=== PATIENT | male | born 1945 | race Caucasian/White ===

== ENCOUNTER → 2017-05-18 | Outpatient (CLI) | payer MEDICARE, BC ==
--- NOTE | 2017-05-18 10:18 | US ---
EXAMINATION TYPE: US kidneys/renal and bladder DATE OF EXAM: 05/18/2017 COMPARISON: NONE CLINICAL HISTORY: R31.0 Gross Hematuria; TURP; gross hematuria noted two weeks ago and urologist not ed then possible blood vessel rupture at prostate level EXAM MEASUREMENTS: Right Kidney: 12.3 x 5.5 x 5.8 cm Left Kidney: 11.7 x 7.7 x 5.3 cm Post Void Residual Volume: 2.0 mL Right Kidney: inferior simple cortical cyst = 1.3 x 1.4 x 1.3cm Left Kidney: 2 inferior simple cortical cysts are noted with larger cyst = 1.8 x 1.9 x 1.8cm. Bladder: wnl; enlarged prostate is noted posteriorly Bilateral Jets seen: Yes Normal Post Void Residual: Yes Inferior impression due to enlarged prostate is noted at the level of the bladder. Kidneys show garfield l cortical medullary differentiation, no hydronephrosis or pathologic calcification. IMPRESSION: Enlarged prostate gland. No significant post void residual volume. Simple cysts lower pole right kidn ey
== END | disposition home or self-care (01) ==
LOC: RADUSWWP 07:59
PROVIDERS: ATTEND Urology
DX: N28.1 Cyst of kidney, acquired (principal); N40.0 Benign prostatic hyperplasia without lower urinary tract symptoms
CPT/HCPCS: 76770

== ENCOUNTER → 2018-04-20 | Outpatient (CLI) | payer MEDICARE, BC | END | disposition home or self-care (01) | LOC: LABWHC1 07:12 | PROVIDERS: ATTEND Internal Medicine | DX: R73.03 Prediabetes (principal) | CPT/HCPCS: 36415; 82947; 82950 ==

== ENCOUNTER 2018-05-19 10:30 | Inpatient (IN) | payer MEDICARE, BC ==
--- NOTE | 2018-05-19 10:43 | ED ---
Arrhythmia/Palpitations HPI - General Chief Complaint: Arrhythmia/Palpitations Stated Complaint: tachycardia Time Seen by Provider: 05/19/18 10:35 Source: patient Mode of arrival: ambulatory Limitations: no limitations - History of Present Illness Initial Comments: is a 72-year-old male presenting for palpitations. The patient states that he has a known history of atrial fibrillation for the last 2 days, he has been having constant palpitations. He denies any chest pain or shortness of breath. He denies any fevers or chills or coughing. He states that he is been compliant with his carvedilol, contrast oh, Lasix and he does have a pacemaker which is not fired. He also denies any nausea/vomiting/diarrhea. - Related Data Home Medications Medication Instructions Recorded Confirmed Atorvastatin [Lipitor] 10 mg PO DAILY 05/15/18 05/19/18 Carvedilol 25 mg PO BID 05/15/18 05/19/18 Aspirin 325 mg PO DAILY PRN 05/19/18 05/19/18 Cholecalciferol [Vitamin D3] 1,000 unit PO DAILY 05/19/18 05/19/18 Dofetilide [Tikosyn] 500 mcg PO BID 05/19/18 05/19/18 Furosemide [Lasix] 20 mg PO DAILY 05/19/18 05/19/18 Sacubitril/Valsartan [Entresto 49 1 tab PO BID 05/19/18 05/19/18 mg-51 mg Tablet] Tumeric (Unknown) 1 tab PO DAILY 05/19/18 05/19/18 hydrALAZINE HCL [Apresoline] 25 mg PO BID 05/19/18 05/19/18 Allergies Allergy/AdvReac Type Severity Reaction Status Date / Time No Known Allergies Allergy Verified 05/19/18 11:16 Review of Systems ROS Statement: Those systems with pertinent positive or pertinent negative responses have been documented in the HPI. Constitutional: Negative for chills, fatigue and fever. HENT: Negative for congestion. Respiratory: Negative for chest tightness, shortness of breath and wheezing. Negative for cough Cardiovascular: Negative for chest pain and positive for palpitations. Gastrointestinal: Negative for abdominal pain. Negative for abdominal distention, diarrhea, nausea and vomiting. Genitourinary: Negative for dysuria. Musculoskeletal: Negative for back pain, neck pain and neck stiffness. Skin: Negative for color change. Neurological: Negative for dizziness, speech difficulty, weakness and light- headedness. Psychiatric/Behavioral: Negative for agitation and confusion. Negative for anxiety ROS Other: All systems not noted in ROS Statement are negative. Past Medical History Past Medical History: Atrial Fibrillation, Diabetes Mellitus, Hyperlipidemia, Hypertension, Sleep Apnea/CPAP/BIPAP Additional Past Medical History / Comment(s): cardiomyopathy History of Any Multi-Drug Resistant Organisms: None Reported Past Surgical History: Ablation, Orthopedic Surgery, Pacemaker Additional Past Surgical History / Comment(s): cataracts Past Anesthesia/Blood Transfusion Reactions: No Reported Reaction Type of Cardiac Device: Unknown Device Placement Date:: unknown Past Psychological History: No Psychological Hx Reported Smoking Status: Former smoker Past Alcohol Use History: Rare Past Drug Use History: None Reported General Exam - General Exam Comments Initial Comments: Constitutional: Pt appears well-developed and well-nourished. No distress. Head: Normocephalic and atraumatic. Eyes: EOM are normal. Neck: Normal range of motion. Neck supple. Cardiovascular: Tachycardia, regular rhythm, S1 normal, S2 normal and normal heart sounds. Exam reveals no gallop and no friction rub. No murmur heard. Pulmonary/Chest: Effort normal and breath sounds normal. No tachypnea and no bradypnea. No respiratory distress. No wheezes or rales noted. Abdominal: Soft. Bowel sounds are normal. Pt exhibits no shifting dullness, no distension, no pulsatile liver, no fluid wave, no abdominal bruit and no ascites. There is no rigidity, no rebound, no guarding, no tenderness at McBurney's point and negative Samayoa's sign. There is no tenderness. Musculoskeletal: Normal range of motion. Neurological: Pt is alert and oriented to person, place, and time. No cranial nerve deficit. Skin: Skin is warm and dry. No rash noted. Pt is not diaphoretic. No erythema. No pallor. Psychiatric: Pt has a normal mood and affect. Pt behavior is normal. Thought content normal. Limitations: no limitations Course Vital Signs 05/19/18 05/19/18 05/19/18 10:31 10:44 10:48 Temperature 98.0 F Pulse Rate 126 H 126 H Pulse Rate [ 125 H Configuration Engineer ] Respiratory 18 16 Rate Blood Pressure 124/74 O2 Sat by Pulse 99 96 Oximetry 05/19/18 05/19/18 05/19/18 11:00 11:15 11:30 Temperature Pulse Rate 125 H 123 H 124 H Pulse Rate [ Configuration Engineer ] Respiratory 19 18 10 L Rate Blood Pressure 133/104 122/95 122/95 O2 Sat by Pulse 95 98 96 Oximetry 05/19/18 05/19/18 05/19/18 11:43 12:00 12:30 Temperature Pulse Rate 123 H 122 H 122 H Pulse Rate [ Configuration Engineer ] Respiratory 18 19 20 Rate Blood Pressure 120/92 126/95 O2 Sat by Pulse 95 96 Oximetry 05/19/18 13:00 Temperature Pulse Rate 123 H Pulse Rate [ Configuration Engineer ] Respiratory 16 Rate Blood Pressure 117/82 O2 Sat by Pulse 95 Oximetry - Reevaluation(s) Reevaluation #1: 05/19/18 12:55 - discussed case with cardiology as laboratory studies are unremarkable. Patient was given 2 doses of 5 mg metoprolol with no significant change in rhythm. He was then started on Cardizem drip with again no change in rhythm. The [employer] pacemaker was also formally interrogated and no evidence of significant arrhythmia other than it being paced. Case is discussed with cardiology and it was recommended that this may be pacemaker induced tachycardia and it was also recommended that EKG be performed with magnet placed on pacer. EKG Findings - EKG Comments: EKG Findings:: Sinus tachycardia with rate of 126 bpm and right bundle-branch block. QRS duration 148, QTC 590. 13:58 - EKG shows sinus tachycardia of a rate of 123 bpm, QRS 146, QTC 604. Medical Decision Making - Medical Decision Making Multiple discussions were had with the letterpress setter and discussion was also had with the [employer] pacemaker jewelry sales representative and it was advised that there was no atrial arrhythmia that would be causing the patient's tachycardia. Because of this, it is apparent that this is sinus tachycardia. Patient was not heparinized as he has a watchman. Etiology of the symptoms are unclear and because of this, patient will be placed in observation as he has an ACO patient. Further management of Cardizem will be deferred to cardiology as well. At the time of disposition, patient is hemodynamically stable in no acute distress.Explained all labs and diagnostic test results and that we will admit patient to hospital. Pt is agreeable to plan and case has been discussed with Dr. Holt and they agree to accept the pt. - Lab Data Result diagrams: 05/19/18 10:45 05/19/18 10:45 Lab Results 05/19/18 05/19/18 05/19/18 Range/Units 10:45 10:45 10:45 WBC 7.0 (3.8-10.6) k/uL RBC 4.67 (4.30-5.90) m/uL Hgb 14.9 (13.0-17.5) gm/dL Hct 44.8 (39.0-53.0) % MCV 96.0 (80.0-100.0) fL MCH 32.0 (25.0-35.0) pg MCHC 33.3 (31.0-37.0) g/dL RDW 13.1 (11.5-15.5) % Plt Count 198 (150-450) k/uL Neutrophils % 68 % Lymphocytes % 17 % Monocytes % 7 % Eosinophils % 4 % Basophils % 1 % Neutrophils # 4.7 (1.3-7.7) k/uL Lymphocytes # 1.2 (1.0-4.8) k/uL Monocytes # 0.5 (0-1.0) k/uL Eosinophils # 0.3 (0-0.7) k/uL Basophils # 0.1 (0-0.2) k/uL PT 10.0 (9.0-12.0) sec INR 0.9 (<1.2) APTT 24.9 (22.0-30.0) sec Sodium 140 (137-145) mmol/L Potassium 4.5 (3.5-5.1) mmol/L Chloride 104 (98-107) mmol/L Carbon Dioxide 28 (22-30) mmol/L Anion Gap 8 mmol/L BUN 32 H (9-20) mg/dL Creatinine 1.12 (0.66-1.25) mg/dL Est GFR (CKD-EPI)AfAm 76 (>60 ml/min/1.73 sqM) Est GFR (CKD-EPI)NonAf 66 (>60 ml/min/1.73 sqM) Glucose 102 H (74-99) mg/dL Calcium 9.4 (8.4-10.2) mg/dL Magnesium 2.1 (1.6-2.3) mg/dL Total Bilirubin 1.3 (0.2-1.3) mg/dL AST 23 (17-59) U/L ALT 35 (21-72) U/L Alkaline Phosphatase 76 (38-126) U/L Troponin I (0.000-0.034) ng/mL NT-Pro-B Natriuret Pep pg/mL Total Protein 7.0 (6.3-8.2) g/dL Albumin 4.1 (3.5-5.0) g/dL TSH 1.690 (0.465-4.680) mIU/L 05/19/18 05/19/18 Range/Units 10:45 10:45 WBC (3.8-10.6) k/uL RBC (4.30-5.90) m/uL Hgb (13.0-17.5) gm/dL Hct (39.0-53.0) % MCV (80.0-100.0) fL MCH (25.0-35.0) pg MCHC (31.0-37.0) g/dL RDW (11.5-15.5) % Plt Count (150-450) k/uL Neutrophils % % Lymphocytes % % Monocytes % % Eosinophils % % Basophils % % Neutrophils # (1.3-7.7) k/uL Lymphocytes # (1.0-4.8) k/uL Monocytes # (0-1.0) k/uL Eosinophils # (0-0.7) k/uL Basophils # (0-0.2) k/uL PT (9.0-12.0) sec INR (<1.2) APTT (22.0-30.0) sec Sodium (137-145) mmol/L Potassium (3.5-5.1) mmol/L Chloride (98-107) mmol/L Carbon Dioxide (22-30) mmol/L Anion Gap mmol/L BUN (9-20) mg/dL Creatinine (0.66-1.25) mg/dL Est GFR (CKD-EPI)AfAm (>60 ml/min/1.73 sqM) Est GFR (CKD-EPI)NonAf (>60 ml/min/1.73 sqM) Glucose (74-99) mg/dL Calcium (8.4-10.2) mg/dL Magnesium (1.6-2.3) mg/dL Total Bilirubin (0.2-1.3) mg/dL AST (17-59) U/L ALT (21-72) U/L Alkaline Phosphatase (38-126) U/L Troponin I <0.012 (0.000-0.034) ng/mL NT-Pro-B Natriuret Pep 350 pg/mL Total Protein (6.3-8.2) g/dL Albumin (3.5-5.0) g/dL TSH (0.465-4.680) mIU/L Disposition Clinical Impression: Palpitations, Sinus tachycardia Disposition: ADMITTED IP TO THIS HOSP Condition: Fair Referrals: Maximilian Roberto MD [Primary Care Provider] - 1-2 days Decision to Admit Reason: Admit from EC Decision Date: 05/19/18 Decision Time: 15:32
--- NOTE | 2018-05-19 11:07 | XR ---
EXAMINATION TYPE: XR chest 2V DATE OF EXAM: 05/19/2018 COMPARISON: NONE HISTORY: Dysrhythmia TECHNIQUE: Frontal and lateral views of the chest are obtained. FINDINGS: Strand-like perihilar atelectasis is seen in addition to a multilead left-sided cardiac de vice and mild cardiomegaly. Otherwise the lungs are well aerated and osseous structures are grossly i ntact with mild osteopenia. IMPRESSION: Minimal perihilar subsegmental atelectasis and cardiomegaly. Otherwise unremarkable exam .
[2018-05-19 11:18] LABS: Basophils # (A) 0.1 k/uL (0-0.2); Basophils % (A) 1 %; Eosinophils # (A) 0.3 k/uL (0-0.7); Eosinophils % (A) 4 %; HCT 44.8 % (39.0-53.0); HGB 14.9 gm/dL (13.0-17.5); Lymphocytes # (A) 1.2 k/uL (1.0-4.8); Lymphocytes % (A) 17 %; MCHC 33.3 g/dL (31.0-37.0); Mean Platelet Volume 6.3; Monocytes # (A) 0.5 k/uL (0-1.0); Monocytes % (A) 7 %; Neutrophils # (A) 4.7 k/uL (1.3-7.7); Neutrophils % (A) 68 %; Platelet Count 198 k/uL (150-450); RBC 4.67 m/uL (4.30-5.90); RDW 13.1 % (11.5-15.5)
[2018-05-19 11:20] LABS: Albumin 4.1 g/dL (3.5-5.0); Calcium 9.4 mg/dL (8.4-10.2); Magnesium 2.1 mg/dL (1.6-2.3); Potassium 4.5 mmol/L (3.5-5.1); Total Bilirubin 1.3 mg/dL (0.2-1.3)
[2018-05-19] MEDS: METOPROLOL TARTRATE 5 MG/5 ML VIAL IVP SCH ×3 (11:20→11:43)
[2018-05-19 11:36] LABS: INR 0.9 (<1.2); Partial Thromboplastin Time 24.9 sec (22.0-30.0)
[2018-05-19] MEDS ORDERED: DILTIAZEM DRIP BOLUS FROM BAG 1 MG SOLN IV ONE (11:41)
[2018-05-19] MEDS ORDERED: HEPARIN SODIUM,PORCINE 10,000 UNIT/ML 1 ML VIAL IV STA (11:41)
[2018-05-19] MEDS ORDERED: ASPIRIN 81 MG PO STA (11:41)
[2018-05-19] MEDS ORDERED: MAGNESIUM SULFATE-D5W PMX 1 GM in DEXTROSE/WATER 1 100ML.BAG IVPB STA (11:41)
[2018-05-19] MEDS ORDERED: DILTIAZEM 125 MG in SODIUM CHLORIDE 0.9% 100 ML IV SCH (11:45)
[2018-05-19] MEDS ORDERED: HEPARIN SOD,PORK IN 0.45% NACL 25,000 UNIT in 0.45% NACL 1 250ML.BAG IV SCH (11:45)
[2018-05-19] MEDS ORDERED: HEPARIN SODIUM,PORCINE 5,000 UNIT/ML 1 ML VIAL IV ONE (11:54)
[2018-05-19] MEDS ORDERED: NITROGLYCERIN SL TABS 0.4 MG TAB SUBLINGUAL PRN (15:16)
[2018-05-19 18:34] VITALS: RESP 18; BMI 36.9
[2018-05-19] MEDS: hydrALAZINE HCL 25 MG TAB PO SCH (20:25)
[2018-05-19] MEDS: SACUBITRIL/VALSARTAN 49 MG-51 MG TABLET PO SCH (20:25)
[2018-05-19] MEDS: CARVEDILOL 12.5 MG TAB PO SCH (20:25)
[2018-05-19] MEDS: DOFETILIDE 500 MCG CAP PO SCH (20:25)
[2018-05-19] MEDS ORDERED: NALOXONE 0.4 MG/ML 1 ML VIAL IV PRN (21:51)
[2018-05-19] MEDS ORDERED: MAGNESIUM HYDROXIDE 2,400 MG/10 ML CUP PO PRN (21:51)
[2018-05-19] MEDS ORDERED: ACETAMINOPHEN TAB 325 MG TAB PO PRN (21:51)
[2018-05-19] MEDS ORDERED: ONDANSETRON 4 MG/2 ML VIAL IVP PRN (21:51)
[2018-05-19] MEDS ORDERED: ALPRAZolam 0.25 MG TAB PO PRN (21:51)
[2018-05-19] MEDS ORDERED: LACTULOSE 20 GM/30 ML CUP PO PRN (21:51)
[2018-05-19] MEDS ORDERED: CALCIUM CARBONATE 500 MG CHEWABLE PO PRN (21:51)
[2018-05-19] MEDS ORDERED: MELATONIN 3 MG TABLET PO PRN (21:51)
--- NOTE | 2018-05-19 22:53 | HP ---
HISTORY AND PHYSICAL DATE OF SERVICE: 05/19/2018. PRESENTING COMPLAINT: Heart racing. HISTORY OF PRESENTING COMPLAINT: A very pleasant 72-year-old patient of Dr. Maximilian Roberto. Chronic stable medical conditions include diabetes, hypertension, hyperlipidemia, obstructive sleep apnea, cardiomyopathy, last EF around 35%, and a permanent pacemaker for complete heart block. The patient for 2 to 3 days has been noticing palpitations, some dizziness, lightheadedness. Came to the ER, found to be in atrial fibrillation with rapid ventricular rate. Put on a Cardizem drip. Patient's heart rate then settled down to the 70s. The patient is admitted for the same. Cardiology was consulted. There was no chest pain or pressure. REVIEW OF SYSTEMS: CONSTITUTIONAL: Tired. HEENT: None. RESPIRATORY: As above. CARDIOVASCULAR: As above. GASTROINTESTINAL: None. GENITOURINARY: None. MUSCULOSKELETAL: None. DERMATOLOGIC: None. HEMATOLOGIC: None. LYMPHATIC: None. PSYCHIATRY: None. NEUROLOGICAL: None. PAST MEDICAL HISTORY: Atrial fibrillation, diabetes, hypertension, hyperlipidemia, obstructive sleep apnea, cardiomyopathy EF 25%, complete heart block with a pacemaker. PAST SURGICAL HISTORY: Ablation, pacemaker, cataract. SOCIAL HISTORY: Retired from [employer]. The patient smoked for about 15 years a long time ago. Alcohol sometimes. FAMILY HISTORY: Reviewed, noncontributory to presentation. HOME MEDICATIONS: Turmeric 1 tablet daily, 49/50 one tab p.o. b.i.d., Lasix 20 mg daily, vitamin D3, 1000 units p.o. daily, aspirin 325 p.o. daily p.r.n., hydralazine 25 mg b.i.d., 500 mg b.i.d., Coreg 25 mg b.i.d., Lipitor 10 mg p.o. daily. ALLERGIES: None. PHYSICAL EXAMINATION: VITAL SIGNS: Vital signs on presentation, temperature 98, pulse 126, respirations 18, blood pressure 120/74, pulse ox 99 percent room air. GENERAL APPEARANCE: Well built, BMI 37. Sitting at the edge of bed, awake. EYES: Pupils equal. Conjunctivae normal. HEENT: External appearance of nose and ears normal. Oral cavity normal. NECK: JVD not raised. Mass not palpable. Respiratory effort normal. LUNGS: Fair entry. CARDIOVASCULAR: Heart is irregular. No edema. ABDOMEN: Soft, nontender. Liver and spleen not palpable. LYMPHATIC: No lymph node palpable in the neck or axillae. PSYCHIATRY: Alert and oriented x3. Mood and affect normal. NEUROLOGIC: Pupils equal. Cranial nerves grossly intact. Power and sensation grossly intact. INVESTIGATIONS: White count 7, hemoglobin 14.9, and platelets 198. Potassium 4.5, BUN 32, creatinine 1.12. Troponin times two negative. TSH 1.6. EKG tracing showing a rate of 126 with right bundle branch block pattern, personally reviewed by me. Chest x-ray film personally reviewed by me shows borderline cardiomegaly, pacemaker, no obvious venous prominence. ASSESSMENT: 1. Persistent atrial fibrillation with rapid ventricular rate on presentation, was started on a Cardizem drip in the ER. His heart rate did come down to 70s. 2. Obesity; BMI 37. 3. Hyperlipidemia. 4. Essential hypertension. 5. Obstructive sleep apnea. 6. Cardiomyopathy, ejection fraction of 35%. 7. Complete heart block with permanent pacemaker. PLAN: Home medications are resumed. The patient has been on a Cardizem drip which currently is being held. Await input from Cardiology. Care was discussed with the patient. Questions were answered. Anticoagulation as per Cardiology. MMODL / IJN: [id number] /
[2018-05-20 04:05] LABS: Cholesterol 121 mg/dL (<200); HDL Cholesterol 35 mg/dL (40-60); LDL Cholesterol,Calculated 60 mg/dL (0-99); Triglycerides 132 mg/dL (<150)
[2018-05-20 06:24] VITALS: PULSE 74
[2018-05-20] MEDS: CARVEDILOL 12.5 MG TAB PO SCH (08:03)
[2018-05-20] MEDS: hydrALAZINE HCL 25 MG TAB PO SCH (08:04)
[2018-05-20] MEDS: SACUBITRIL/VALSARTAN 49 MG-51 MG TABLET PO SCH (08:04)
[2018-05-20] MEDS: DOFETILIDE 500 MCG CAP PO SCH (08:04)
[2018-05-20] MEDS ORDERED: Acetaminophen-Codeine 300-30mg TAB PO PRN (08:33)
[2018-05-20] MEDS ORDERED: FUROSEMIDE 20 MG TAB PO SCH (09:00)
[2018-05-20] MEDS ORDERED: ASPIRIN 325 MG TAB PO SCH (09:00)
[2018-05-20] MEDS ORDERED: ATORVASTATIN 10 MG TAB PO SCH (09:00)
[2018-05-20 12:46] VITALS: BP 118/72; TEMP 97.8
--- NOTE | 2018-05-20 14:24 | P.CRDCN ---
History of Present Illness History of present illness: This is a pleasant 72-year-old male past medical history significant for paroxysmal atrial fibrillation status post cardioversion and watchman procedure maintained on Tikosyn, chronic systolic heart failure with last known ejection fraction is 35% status post AICD placement, history of complete heart block, hypertension, dyslipidemia, nonischemic cardiomyopathy and diabetes jeremy litus. He follows with Dr. Delarosa for cardiology as well as an data integrity specialist out of the [facility]. We have been asked to see him in consultation secondary to tachycardia. He states this has happened to him in the past intermittently where he will feel his heart racing. The last time this happened he presented to the hospital and was given Cardizem and Lopressor and subsequently the tachycardia subsided. Upon admission here EKG obtained reveals a wide complex paced tachycardia with underlying right bundle branch block with a heart rate of 126. He denies symptoms of chest discomfort, shortness of breath or dizziness associated with palpitations. He is given Cardizem in the emergency department and his symptoms of palpitations subsided repeat EKG reveals a wide QRS paced rhythm with a right bundle branch block. Laboratory data reviewed, WBC 7, hemoglobin 14.9, platelets 198, sodium 140, potassium 4.5, creatinine 1.12, magnesium 2.1, cardiac enzymes negative 3, NT proBNP 350, LDL 60 and TSH 1.69. Chest x-ray is negative for an acute cardiopulmonary process with evidence of perihilar subsegmental atelectasis. Current cardiac medications include atorvastatin 10 mg daily, carvedilol 25 mg twice a day, Tikosyn 500 g twice a day, hydralazine 25 mg twice a day, aspirin 325 mg daily as needed, Lasix 20 mg daily and Entresto 49/51 mg BID. At the time of my exam: CONSTITUTIONAL: Denies fever. Denies chills. EYES: Denies blurred vision. Denies vision changes. Denies eye pain. EARS, NOSE, MOUTH & THROAT: Denies headache. Denies sore throat. Denies ear pain. CARDIOVASCULAR: Denies chest pain. Denies shortness of breath. Denies orthopnea. Denies PND. Denies palpitations. RESPIRATORY: Denies cough. GASTROINTESTINAL: Denies abdominal pain. Denies diarrhea. Denies constipation. Denies nausea. Denies vomiting. MUSCULOSKELETAL: Denies myalgias. INTEGUMENTARY: Denies pruitis. Denies rash. NEUROLOGIC: Denies numbness. Denies tingling. Denies weakness. PSYCHIATRIC: Denies anxiety. Denies depression. ENDOCRINE: Denies fatigue. Denies weight change. Denies polydipsia. Denies polyurina. GENITOURINARY: Denies burning, hematuria or urgency with micturation. HEMATOLOGIC: Denies history of anemia. Denies bleeding. GENERAL: This is a 72-year-old male in no apparent distress at the time of my examination. HEENT: Head is atraumatic, normocephalic. Pupils are equal, round. Sclerae anicteric. Conjunctivae are clear. Mucous membranes of the mouth are moist. Neck is supple. There is no jugular venous distention. No carotid bruit is heard. LUNGS: Clear to auscultation no wheezes, rales or rhonchi. No chest wall tenderness is noted on palpation or with deep breathing. HEART: Regular rate and rhythm with systolic ejection murmur at the left sternal border, no rubs or gallops. S1 and S2 heard. ABDOMEN: Soft, nontender. Bowel sounds are heard. No organomegaly noted. EXTREMITIES: 1+ bilateral lower extremity pitting edema and no calf tenderness noted. VASCULAR: Radial and dorsalis pedis pulses palpated, no evidence of clubbing. NEUROLOGIC: Patient is awake, alert and oriented x3. ASSESSMENT Palpitations with evidence of wide complex paced tachycardia Chronic systolic heart failure, currently euvolemic Permanent pacemaker implantation secondary to complete heart block Hypertension Dyslipidemia Diabetes mellitus PLAN We have requested [employer] to interrogate his device. He is hemodynamically stable, if interrogation is unremarkable he may be discharged home to follow with his data integrity specialist next week. He already has an appointment scheduled. Thank you kindly for this consultation. Nurse Practitioner note has been reviewed, I agree with a documented findings and plan of care. Patient was seen and examined. Past Medical History Past Medical History: Atrial Fibrillation, Diabetes Mellitus, Hyperlipidemia, Hypertension, Sleep Apnea/CPAP/BIPAP Additional Past Medical History / Comment(s): cardiomyopathy, COMPLETE HEART BLOCK, COMPLETE HEART BLOCK History of Any Multi-Drug Resistant Organisms: None Reported Past Surgical History: Ablation, Orthopedic Surgery, Pacemaker Additional Past Surgical History / Comment(s): cataracts Past Anesthesia/Blood Transfusion Reactions: No Reported Reaction Type of Cardiac Device: AICD Device Placement Date:: unknown Past Psychological History: No Psychological Hx Reported Smoking Status: Former smoker Past Alcohol Use History: Rare Past Drug Use History: None Reported Medications and Allergies Home Medications Medication Instructions Recorded Confirmed Type Atorvastatin [Lipitor] 10 mg PO DAILY 05/15/18 05/19/18 History Carvedilol 25 mg PO BID 05/15/18 05/19/18 History Aspirin 325 mg PO DAILY PRN 05/19/18 05/19/18 History Cholecalciferol [Vitamin D3] 1,000 unit PO DAILY 05/19/18 05/19/18 History Dofetilide [Tikosyn] 500 mcg PO BID 05/19/18 05/19/18 History Furosemide [Lasix] 20 mg PO DAILY 05/19/18 05/19/18 History Sacubitril/Valsartan [Entresto 49 1 tab PO BID 05/19/18 05/19/18 History mg-51 mg Tablet] Tumeric (Unknown) 1 tab PO DAILY 05/19/18 05/19/18 History hydrALAZINE HCL [Apresoline] 25 mg PO BID 05/19/18 05/19/18 History Acetaminophen-Codeine 300-30mg 1 tab PO Q6H PRN 05/20/18 05/20/18 History [Tylenol w/codeine #3] Allergies Allergy/AdvReac Type Severity Reaction Status Date / Time No Known Allergies Allergy Verified 05/19/18 11:16 Physical Exam Vitals: Vital Signs Temp Pulse Resp BP Pulse Ox 05/20/18 12:00 97.8 F 74 18 118/72 97 05/20/18 08:00 97.7 F 74 18 130/80 98 05/20/18 04:10 98 F 74 17 103/64 96 05/19/18 23:40 98.3 F 76 18 98/62 95 05/19/18 20:00 98.2 F 74 17 90/55 98 05/19/18 17:13 98.2 F 05/19/18 16:15 98.2 F 90 18 120/74 97 Intake and Output 05/19/18 05/20/18 05/20/18 21:59 06:59 14:59 Intake Total 480 Output Total 500 Balance -20 Intake: IV 0.9 Oral 480 Output: Urine 500 Other: Voiding Method Toilet # Voids Weight Results 05/19/18 10:45 05/19/18 10:45 Cardiac Enzymes 05/19/18 05/19/18 Range/Units 16:29 22:41 Troponin I <0.012 <0.012 (0.000-0.034) ng/mL Lipids 05/19/18 Range/Units 10:45 Triglycerides 132 (<150) mg/dL Cholesterol 121 (<200) mg/dL HDL Cholesterol 35 L (40-60) mg/dL Current Medications Generic Name Dose Route Start Last Admin Trade Name Freq PRN Reason Stop Dose Admin Acetaminophen 650 mg 05/19/18 21:51 Tylenol Tab PO Q6HR PRN Mild Pain or Fever > 100.5 Acetaminophen/Codeine Phosphate 1 each 05/20/18 08:33 05/20/18 10:05 Tylenol #3 PO 1 each Q8HR PRN Administration Pain Alprazolam 0.25 mg 05/19/18 21:51 Xanax PO Q6HR PRN Anxiety Aspirin 325 mg 05/20/18 09:00 05/20/18 08:03 Aspirin PO 325 mg DAILY AMANDA Administration Atorvastatin Calcium 10 mg 05/20/18 09:00 05/20/18 08:03 Lipitor PO 10 mg DAILY AMANDA Administration Calcium Carbonate/Glycine 1,000 mg 05/19/18 21:51 Tums PO Q4HR PRN Dyspepsia Carvedilol 25 mg 05/19/18 21:00 05/20/18 08:03 Coreg PO 25 mg BID AMANDA Administration Dofetilide 500 mcg 05/19/18 21:00 05/20/18 08:04 Tikosyn PO 500 mcg BID AMANDA Administration Furosemide 20 mg 05/20/18 09:00 05/20/18 08:04 Lasix PO 20 mg DAILY AMANDA Administration Hydralazine HCl 25 mg 05/19/18 21:00 05/20/18 08:04 Apresoline PO 25 mg BID AMANDA Administration Lactulose 20 gm 05/19/18 21:51 Cephulac PO DAILY PRN Constipation Magnesium Hydroxide 2,400 mg 05/19/18 21:51 Milk Of Magnesia PO DAILY PRN Constipation Melatonin 3 mg 05/19/18 21:51 Melatonin PO HS PRN Insomnia Naloxone HCl 0.2 mg 05/19/18 21:51 Narcan IV Q2M PRN Opioid Reversal Nitroglycerin 0.4 mg 05/19/18 15:16 Nitrostat SUBLINGUAL Q5M PRN Chest Pain Ondansetron HCl 4 mg 05/19/18 21:51 Zofran IVP Q8HR PRN Nausea And Vomiting Sacubitril/Valsartan 1 each 05/19/18 21:00 05/20/18 08:04 Entresto 49 Mg-51 Mg Tablet PO 1 each BID AMANDA Administration Intake and Output 05/19/18 05/20/18 05/20/18 21:59 06:59 14:59 Intake Total 480 Output Total 500 Balance -20 Intake: IV 0.9 Oral 480 Output: Urine 500 Other: Voiding Method Toilet # Voids Weight 05/19/18 10:45 05/19/18 10:45
--- NOTE | 2018-05-20 18:38 | DS ---
DISCHARGE SUMMARY DATE OF ADMISSION: May 19, 2018 DATE OF DISCHARGE: May 20, 2018. FINAL DIAGNOSES: 1. Persistent atrial fibrillation with rapid ventricular rate on presentation. 2. Obesity; BMI 37. 3. Hyperlipidemia. 4. Essential hypertension. 5. Obstructive sleep apnea. 6. Cardiomyopathy EF 35%, nonischemic. 7. Complete heart block with permanent pacemaker. HOSPITAL COURSE: This patient presented with heart racing up. The patient does follow with asphalt smoother out of the area. Initially was put on IV Cardizem drip, then the heart rate got controlled. Seen by [facility] smoother today. The nurse Leann informed me that Cardiology has okayed for the patient to go home. A formal dictation is still not up. The patient otherwise that he has been cleared to go home. Asymptomatic. PHYSICAL EXAMINATION: Temperature 97.8, pulse 74, respiratory 18, blood pressure 108/72. Pulse ox 97% on room air. Cardiovascular: Heart sounds irregular. LUNGS: Fair air entry. INVESTIGATIONS: Troponin is negative. TSH normal. DISCHARGE MEDICATIONS: 1. Lipitor 10 mg a day. 2. Coreg 25 mg p.o. b.i.d. 3. Aspirin 325 p.o. daily p.r.n. 4. Vitamin D3 2000 units p.o. daily. 5. Tikosyn 500 mcg p.o. b.i.d. 6. Lasix 20 mg p.o. daily. 7. Entresto 49/50 1 tab p.o. b.i.d. 8. Hydralazine 25 mg b.i.d. 9. Tylenol #3 one tablet q.6h p.r.n. FOLLOWUP: Follow up with Dr. Maximilian Roberto in 2 days, follow up with his asphalt smoother in the next [address] Maximilian Roberto. MMODL / IJN: [id number] /
== END 2018-05-20 14:43 | disposition home or self-care (01) | DRG 309 ==
LOC: EC 10:30 → 3SCARD 15:16
PROVIDERS: ADMIT Hospitalist; ATTEND Hospitalist
DX: I48.1 Persistent atrial fibrillation (principal); I50.22 Chronic systolic (congestive) heart failure; E11.9 Type 2 diabetes mellitus without complications; E66.9 Obesity, unspecified; E78.5 Hyperlipidemia, unspecified; G47.33 Obstructive sleep apnea (adult) (pediatric); I11.0 Hypertensive heart disease with heart failure; I42.8 Other cardiomyopathies; I44.2 Atrioventricular block, complete; I45.10 Unspecified right bundle-branch block; I48.0 Paroxysmal atrial fibrillation; Z68.37 Body mass index [BMI] 37.0-37.9, adult; Z79.82 Long term (current) use of aspirin; Z79.899 Other long term (current) drug therapy; Z87.891 Personal history of nicotine dependence; Z95.810 Presence of automatic (implantable) cardiac defibrillator; Z98.49 Cataract extraction status, unspecified eye
CPT/HCPCS: 36415; 71046; 80053; 80061; 83735; 83880; 84443; 84484; 85025; 85610; 85730; 93005; 96365; 96368; 96375; 96376; 99285

== ENCOUNTER → 2019-01-31 | Outpatient (CLI) | payer MEDICARE, BC ==
--- NOTE | 2019-01-31 09:11 | US ---
EXAMINATION TYPE: US duplex aorta DATE OF EXAM: 01/31/2019 COMPARISON: NONE CLINICAL HISTORY: Z87.891 personal histroy of nicotine dependence. EXAM MEASUREMENTS: Abdominal Aorta: Proximal: 2.8 X 2.7 cm Mid: 2.4 x 2.3 cm Distal: 1.9 x 1.7 cm Bifurcation: 1.1 cm 1.2 cm No evidence of AAA IMPRESSION: No evidence for abdominal aortic aneurysm.
== END | disposition home or self-care (01) ==
LOC: RADUSWWP 07:46
PROVIDERS: ATTEND Internal Medicine
DX: Z13.6 Encounter for screening for cardiovascular disorders (principal); Z87.891 Personal history of nicotine dependence
CPT/HCPCS: 93979

== ENCOUNTER → 2019-12-03 | Outpatient (CLI) | payer MEDICARE, BC ==
--- NOTE | 2019-12-03 15:11 | CT ---
EXAMINATION TYPE: CT lumbar spine wo con DATE OF EXAM: 12/03/2019 2:56 PM COMPARISON: Pain HISTORY: chronic low back pain CT DLP: 1556.1 mGycm Automated exposure control for dose reduction was used. Unenhanced CT of the lumbar spine was performed. Bone and soft tissue window settings are submitted as well as coronal and sagittal reconstructions. There are bilateral small pleural effusions. There i s a hypodense lesion within the caudate lobe of the liver measuring 9 Hounsfield units compatible wit h a simple cyst. L1-L2: Severe degenerative disc disease with posterior spondylosis. Disc bulging capped by spur with facet arthropathy. Findings consistent with canal stenosis. Lucency along the endplate could be relat ed to a Schmorl's node. L2-L3: Diffuse disc bulging with severe degenerative disc disease and vacuum disc. Facet arthropathy and disc bulging contribute to canal stenosis. Bilateral foraminal encroachment. Focal vertebral body lucency seen at L2 L3-L4: Diffuse disc bulging with severe degenerative disc disease and vacuum disc. Facet arthropathy and disc bulging contribute to canal stenosis. Bilateral foraminal encroachment or focal vertebral aime dy lucencies are noted. L4-L5: Severe degenerative disc disease with facet arthropathy. Changes are greater on the left with severe left-sided foraminal encroachment. There is a lateral compression of the thecal sac L5-S1: Partial sacralization of the L5 vertebral segment. Neural foramina remain patent. No obvious c anal stenosis. IMPRESSION: 1. Severe degenerative disc disease with vacuum disc at all levels. Hypertrophic changes contribute t o canal stenosis at virtually all levels with foraminal encroachment as discussed above. Recommend MR I. 2. Multilevel disc bulging as discussed above. 3. There are bilateral pleural effusions correlate clinically for cardiopulmonary disease. 4. There are intervertebral body lucencies at multiple levels which are nonspecific. Correlation with MRI or bone scan is recommended for further evaluation if there is concern for infectious etiology o r neoplastic process. A Yellow level critical message alert has been initiated for Valente Moore MD via the [employer] Critical Results System on 12/03/2019 3:06 PM. This message alert has been sent to Valente vick MD via the preferences provided by the clinician for the receipt of Radiology Critical Findings. Message ID [id number].
== END | disposition home or self-care (01) ==
LOC: RADCTMAIN 14:33
PROVIDERS: ATTEND Physical Medicine & Rehabilitation
DX: M48.061 Spinal stenosis, lumbar region without neurogenic claudication (principal); M51.26 Other intervertebral disc displacement, lumbar region; M51.36 Other intervertebral disc degeneration, lumbar region
CPT/HCPCS: 72131

== ENCOUNTER → 2019-12-06 | Outpatient (CLI) | payer MEDICARE, BC ==
--- NOTE | 2019-12-06 16:50 | NM ---
EXAMINATION TYPE: NM bone scan whole body DATE OF EXAM: 12/06/2019 COMPARISON: CT are spine 12/03/2019 HISTORY: Lower back pain Delayed whole-body scanning was performed following the injection of 26.2 mCi Tc 99m MDP. Images acq uired 3 hours post injection. FINDINGS: Multifocal areas of uptake of the cervical through the lumbar spine, focus of uptake over the right a nterior rib 1, and several small foci of the posterior ribs are suspicious. There is symmetric degene rative uptake of the bilateral shoulders, sacroiliac joints, knees, and feet. IMPRESSION: Multifocal areas of activity of the cervical through lumbar spine, as well as the ribs, are suspiciou s for possible neoplastic etiology.
== END | disposition home or self-care (01) ==
LOC: RADNMMAIN 09:38
PROVIDERS: ATTEND Physical Medicine & Rehabilitation
DX: M54.5 Low back pain (principal); M47.817 Spondylosis without myelopathy or radiculopathy, lumbosacral region; M43.16 Spondylolisthesis, lumbar region; M41.26 Other idiopathic scoliosis, lumbar region
CPT/HCPCS: 78306; A9503

== ENCOUNTER → 2019-12-27 | Outpatient (CLI) | payer MEDICARE, BC ==
--- NOTE | 2019-12-29 16:58 | PE ---
Nuclear medicine PET/CT HISTORY: C 61, initial Patient received 12.2 mCi F-18 FDG intravenously, delayed scanning was performed from the skull base to the mid thighs. Localization and attenuation correction CT scan was performed. Correlation to bone scan 12/06/2019, CT 12/03/2019 Chest and neck: There is no mediastinal, axillary, or hilar adenopathy. Heart is enlarged. There are leads within the heart. Metallic device present within the left atrial appendage. Minimal pericardial effusion. Bilateral small pleural effusions are again noted. Diffuse muscular uptake is suspected. N o supraclavicular or cervical adenopathy. Generators present in the left pectoral region. No evident lung mass. ABDOMEN: There is no liver mass. No retroperitoneal adenopathy. Uptake along the bowel is thought to be physiologic. Prostate is enlarged. No pelvic adenopathy or free fluid. Osseous structures show diffuse degenerative disc changes as noted on prior exam within the lumbar sp ine, there is associated facet arthropathy and spinal stenosis. No suspicious uptake. Costovertebral angles show degenerative changes which likely corresponding with bone scan findings. IMPRESSION: Probable degenerative disc disease, Schmorl's node formation at multiple endplates in the visualized lumbar spine. Small pleural effusions. Postprocedural changes. No convincing metastatic d isease.
== END | disposition home or self-care (01) ==
LOC: RADPETMAIN 16:14
PROVIDERS: ATTEND Internal Medicine
DX: J90 Pleural effusion, not elsewhere classified (principal); Z98.890 Other specified postprocedural states; C61 Malignant neoplasm of prostate
CPT/HCPCS: 78815; A9552

== ENCOUNTER → 2020-02-10 | Outpatient (CLI) | payer MEDICARE, BC | END | disposition home or self-care (01) | LOC: LABWHC1 15:57 | PROVIDERS: ATTEND Internal Medicine | DX: Z20.828 Contact with and (suspected) exposure to other viral communicable diseases (principal) | CPT/HCPCS: U0003; C9803 ==

== ENCOUNTER → 2021-05-24 | Outpatient (CLI) | payer MEDICARE, BC ==
--- NOTE | 2021-05-24 09:51 | CT ---
EXAMINATION TYPE: CT lumbar spine wo con DATE OF EXAM: 05/24/2021 COMPARISON: 12/03/2019 HISTORY: 75-year-old male M47.817, M54.50, Spondylosis TECHNIQUE: Contiguous axial scanning of the lumbar spine without IV contrast. Coronal and sagittal re constructions performed. CT DLP: 618 mGycm Automated exposure control for dose reduction was used. FINDINGS: There is a bridging left L5 hemisacralization. Moderate to advanced multilevel disc/endplate degenerative change with desiccated and narrowed discs. Disc bulging and disc ossific complexes are present at multiple levels. Multilevel ligamentum flavum thickening and hypertrophic facet arthropathy throughout. Degenerative grade 1 retrolisthesis L1-L2 is unchanged. Endplate Schmorl's node especially L1-L2 and L2-L3 are redemonstrated. Vertebral body heights are preserved. Suspect a focal severe spinal canal stenosis L3-L4 and probably moderate to severe at L1-L2. At least mild at L2-L3. Changes appear to have progressed from 12/03/2019. On the right, moderate neural foraminal stenosis and L1-L2 and L3-L4. On the left, moderate neuroforaminal stenosis L2-L3 and L4-L5. Mild additional levels. Redemonstrated 2.2 cm posterior right renal cyst and one place and there is cyst of the caudate lobe of the liver. IMPRESSION: 1. MODERATE TO ADVANCED MULTILEVEL DEGENERATIVE DISC DISEASE. LIGAMENTUM FLAVUM THICKENING AND MULTIL EVEL ADVANCED HYPERTROPHIC FACET ARTHROPATHY. CHANGES SHOW SLIGHT OVERALL PROGRESSION FROM 12/03/2019. 2. SIMILAR DEGENERATIVE GRADE 1 RETROLISTHESIS L1-L2. 3. FOCAL SEVERE SPINAL CANAL STENOSIS SUSPECTED AT L3-L4 AND PROBABLY MODERATE TO SEVERE IN L1-L2. AT LEAST MILD AT L2-L3. 4. VARIABLE MILD NEURAL FORAMINAL STENOSES OUTLINED ABOVE, MODERATE ON THE RIGHT AT L1-L2 AND L3-L 4; AND MODERATE ON THE LEFT AT L2-L3 AND L4-L5.
== END | disposition home or self-care (01) ==
LOC: RADCTMAIN 08:04
PROVIDERS: ATTEND Physical Medicine & Rehabilitation
DX: M41.26 Other idiopathic scoliosis, lumbar region (principal); M43.16 Spondylolisthesis, lumbar region; M47.817 Spondylosis without myelopathy or radiculopathy, lumbosacral region
CPT/HCPCS: 72131

== ENCOUNTER → 2021-06-30 | Outpatient (CLI) | payer MEDICARE, BC ==
--- NOTE | 2021-06-30 09:15 | P.CON ---
Consult Note - . Consult date: 06/30/21 Assessment/Plan:: HISTORY OF PRESENT ILLNESS: 75 yr old male as a referral from Dr. Moore presents today with chronic & severe lumbar pain secondary to disc bulges, retrolisthesis, BL neuroforaminal stenoses, spinal stenosis, DDD and facet arthropathy for evaluation. Patient states he underwent a series of 2 facet blocks of the medial branches, bilateral L4-L5, L5-S1 where he experienced 100% pain relief for one week each time. Patient states his lower back pain originates in the center of his lumbar spine, 4 out of 10 in intensity,dull, achy with radiation of pain left and right of midline. Pain is provoked with lifting and walking. Pain is relieved with medications ([place]), injections in the recent past by Dr. Moore, physical therapy over 10 years ago which provided short-term pain relief, repositioning and rest. Past Medical History: Atrial Fibrillation, Complete Heart Block, Diabetes Mellitus, Hyperlipidemia, Hypertension, Sleep Apnea/CPAP/BIPAP Past Surgical History: Ablation, Orthopedic Surgery, AICD Pacemaker, Cataract Resection, Facet Block of MB L4-L5, L5-S1 x [address] Moore[address] office, Caudal CAROLANN at Dr Moore's office. Social History: Former smoker, Rare ETOH use, No illicit drug use. Family History: Non contributory All: NKDA Meds: See list REVIEW OF ORGAN SYSTEMS: CONSTITUTIONAL: No fevers or chills. No recent weight loss. HEENT: No visual acuity loss, eye pain, difficulties with hearing. No nosebleeds. No difficulty swallowing. RESPIRATORY: Denies any troubles with breathing or dyspnea on exertion. CARDIOVASCULAR: Denies any chest pain, palpitations, or recent heart attacks. GASTROINTESTINAL: Denies fatty food intolerance. Has change in bowel habits and gas bloat. GENITOURINARY: Denies any blood in urine. Has increased urinary frequency. NEUROLOGICAL: + numbness and tingling along the distal extremities. No seizure disorders or headaches. MUSCULOSKELETAL: + back pain SKIN: No skin cancer. No rash. PSYCHIATRIC: Denies current depression or suicidal thoughts. ENDOCRINE: Denies current thyroid disorders. Denies any blood sugar glucose intolerance. HEME/LYMPHATIC: Denies any lumps and bumps around the neck. History of deep venous thrombosis. ALLERGY/IMMUNOLOGY: No immunoglobulin therapy. No immune deficiencies. BREAST: Denies current breast lumps, pain or nipple discharge. Physical Examinations : Constitutional : Cooperative , not in acute distress . HEENT: Neck supple. No Lymphadenopathy. Normal thyroid size . Eyes no ptosis , no icterus, no photophobia . Hearing intact. Normal oropharynx. No Thrush. Respiratory : Chest clear to auscultations bilaterally. No wheezing. No rhonchi. Cardiovascular : Regular rate and rhythm , S1 / S2. No S3 . No S4. Gastrointestinal : Abdomen soft. No tenderness. Bowel sounds x 4. No organomegaly . Genitourinary : Deferred. Neurologic : Cranial nerve II to XII intact. No focal neurological deficits. Psychiatric : alert & oriented x 3. Matching mood & appropriate affect. Judgment & insight intact. Lymphatic No Lymphadenopathy. Musculoskeletal : Cervical Spine Motor strength in the deltoid and biceps: Normal right side. Normal Left side Motor strength biceps and the wrist extensors: Normal right side . Normal left side Motor strength in the triceps muscle: Normal right side. Normal left side Deep tendon reflexes: Normal at the biceps. Normal at Brachioradialis. Normal at triceps Cervical facet loading test: positive bilaterally Spurling test: positive bilaterally Neck distraction test: positive bilaterally Rakel sign: positive bilaterally Lumbar spine Motor strength lower extremities ,thigh and legs 5/5 Right side , 5/5 Left side Deep tendon reflexes : Normal Knee Jerk. Normal Ankle Jerk Vertebral body tenderness over Lumbar facet Loading Test: positive Right / positive Left over L4-5, L5-S1 Range of motion of the lumbar spine Flexion 30 degrees, extension 10 degrees Straight Leg Raise test: Left/ Right positive at degree Davin test: positive right / positive left. Severe tenderness over the Sacroiliac joint on the Right / Left sides Gaenslen test: positive bilaterally Seated flexion test: positive bilaterally. Imaging: MRI without contrast of the lumbar spine from 05/24/21 reviewed. Assessment/ Plan : Recommendation of RFA BL L4-L5, L5-S1. Risks, benefits of procedure discussed and patient verbalized understanding. Denies aspirin or anti- coagulant use. Denies medical history of diabetes. All questions answered. I have spent greater than 50 minutes on patient care today. Dr Alfredo was available by phone for the evaluation of this patient. The time was used to review the medical records including relevant urine studies and Prescription history (MAPs), review of the available imaging, evaluation and examination of the patient, coordination of care with the medical staff and if applicable referring physicians, as well as creation of the medical record PQRS Measure Charge Sheet PQRS Narrative: Smoking Status Former smoker Pain Intensity [Lower Back] 7 Scale Used Numeric (1 - 10) Hx Alcohol Use (MH) Yes: Very rare Home Medications: Ambulatory Orders Atorvastatin [Lipitor] 10 mg PO DAILY 05/15/18 Amiodarone [Cordarone] 200 mg PO DAILY 06/29/21 HYDROcodone/APAP 5-325MG [[place] 5-325] 1 tab PO TID PRN 06/29/21 Multivitamins, Thera [Multivitamin (formulary)] 1 tab PO DAILY 06/29/21 Sacubitril/Valsartan [Entresto 97 mg-103 mg Tablet] 1 each PO DAILY 06/29/21 carvediloL phosphate [Coreg Cr] 40 mg PO DAILY 06/29/21
[2021-06-30 09:43] VITALS: BP 109/66; PULSE 72; RESP 18; TEMP 97.6
== END ==
LOC: PNWHC3 08:13
PROVIDERS: ATTEND Specialist
DX: M48.061 Spinal stenosis, lumbar region without neurogenic claudication (principal); M51.36 Other intervertebral disc degeneration, lumbar region; M51.26 Other intervertebral disc displacement, lumbar region; M47.816 Spondylosis without myelopathy or radiculopathy, lumbar region; M43.16 Spondylolisthesis, lumbar region; E78.5 Hyperlipidemia, unspecified; I48.91 Unspecified atrial fibrillation; I10 Essential (primary) hypertension; E11.36 Type 2 diabetes mellitus with diabetic cataract; Z87.891 Personal history of nicotine dependence
CPT/HCPCS: 99211

== ENCOUNTER 2021-07-30 11:09 | Day surgery (SDC) | payer MEDICARE, BC ==
[2021-07-29 09:23] VITALS: BMI 38.3
[~2021-07-30 11:09] MED LIST: LACTATED RINGERS 1,000 ML IV SCH; LIDOCAINE 1% (10MG/ML) FOR IV START INTRADERMA PRN
[2021-07-30 11:29] VITALS: TEMP 97.2
[2021-07-30] MEDS ORDERED: MIDAZOLAM 2 MG/2 ML VIAL IVP ONE (11:44)
[2021-07-30] MEDS ORDERED: fentaNYL (PF) 50 MCG/ML 2 ML AMP ONE (12:45)
[2021-07-30] MEDS ORDERED: methylPREDNISolone ACETATE 40 MG/ML 1 ML VIAL ONE (12:45)
[2021-07-30] MEDS ORDERED: MIDAZOLAM 2 MG/2 ML VIAL ONE (12:45)
[2021-07-30] MEDS ORDERED: ROPIVACAINE 5MG/ML 20ML VIAL ONE (12:45)
--- NOTE | 2021-07-30 13:30 | P.PCN ---
Date of Procedure: 07/30/21 Procedure(s) Performed: PREOPERATIVE DIAGNOSIS: 1-Lumbar Spondylosis with Facet Arthropathy without myelopathy. 2- Lumber degenerative disc disease. POSTOPERATIVE DIAGNOSIS: 1- Lumbar Spondylosis with Facet Arthropathy without myelopathy. 2- Lumber degenerative disc disease. PROCEDURES : Bilateral Radiofrequency thermocoagulation, L3 , L4 , and L5 medial branch, with fluoroscopic guidance (fluoroscopy images available in the radiology department) ( to denervate the facet joint at bilateral L4-5 ,and L5-S1 levels ). ANESTHESIA: Monitored anesthesia care as per anesthesia department . EBL: Minimal PROCEDURE INDICATION: The patient with low back pain secondary to lumbar facet arthropathy who had more than 50% relief of her pain with previous diagnostic lumbar medial branch block with bupivacaine. PROCEDURE DESCRIPTION / TECHNIQUE: The patient was seen and identified in the preoperative area. Risks, benefits, complications, including but not limited to risk of infection ,bleeding , allergic reactions to the medications and no complete pain releife , and alternatives were discussed with the patient, the patient agreed to proceed with the procedure and signed the consent. IV was started. Vital signs remained stable throughout the procedure. Patient was taken to the OR and time out was completed. The patient was placed in the prone position on the procedure table. The lumber area was prepped and draped in the usual sterile fashion. . Vital signs were closely monitored during the procedure .IV sedation was used during the procedure to decrease patients anxiety. Using AP and then oblique fluoroscopy, the ``eye of the Shon dog cor responding to the connection between the superior and transverse articular processes of right L3, L4, and L5 were identified, marked, and localized with 1% lidocaine. Subsequently, a 18 -iy radiofrequency cannula with a 10- mm active tip was advanced guided by fluoroscopy to each of the``eyes of the Shon dog at right L3, L4, and L5. Each site then underwent sensory testing at 50 Hz and 0 to 1 volt and motor testing at 2.5 Hz and 0 to 3 volt with local stimulation, but no radicular symptoms down the legs. Thereafter each sites underwent radiofrequency thermocoagulation at 80 degrees celsius for 90 seconds after injecting 0.5 ml of PF Ropivacaine 1ml, then after the thermocoagulation done , 1 ml of the block solution containing Depo-Medrol 20 mg and 3 ml of Ropivacaine 0.5% was injected at the right L3 , L4 , and L5 , levels after negative aspiration of CSF and blood and with no paresthesias. Cannulas were retracted while injecting lidocaine 1% until the needle is out. The same procedure was repeated at the level of Left L3, L4, and L5 levels. At the end of the procedure, the skin was cleansed and bandages were applied. COMPLICATIONS: No acute complications. DISPOSITION / PLANS: The patient was placed in a supine position and transferred to the recovery area in a stable condition for observation and was discharged from the recovery room after meeting discharge criteria. Home discharge instructions given to the patient by the staff. The patient was reexamined prior to discharge. The patient will schedule a follow up in the clinic in 2-4 weeks.
[2021-07-30] MEDS ORDERED: IV FLUID CONTINUATION 1,000 ML IV ONE (13:35)
--- NOTE | 2021-07-30 13:48 | FL ---
EXAMINATION TYPE: FL guided pain mgmt statistic DATE OF EXAM: 07/30/2021 HISTORY: Fluoroscopy time 48 seconds of fluoroscopy provided. IMPRESSION: 1. Fluoroscopy time.
[2021-07-30 13:51] VITALS: BP 97/67; PULSE 63; RESP 18
== END 2021-07-30 14:14 | disposition home or self-care (01) ==
LOC: ORPAIN 11:09
PROVIDERS: ATTEND Specialist
DX: M47.816 Spondylosis without myelopathy or radiculopathy, lumbar region (principal); M51.36 Other intervertebral disc degeneration, lumbar region; I10 Essential (primary) hypertension; E78.5 Hyperlipidemia, unspecified; I11.0 Hypertensive heart disease with heart failure; I50.9 Heart failure, unspecified; I48.91 Unspecified atrial fibrillation; Z95.810 Presence of automatic (implantable) cardiac defibrillator; G47.33 Obstructive sleep apnea (adult) (pediatric); N40.0 Benign prostatic hyperplasia without lower urinary tract symptoms; Z79.891 Long term (current) use of opiate analgesic; Z79.899 Other long term (current) drug therapy
CPT/HCPCS: 64635; 64636; J2250; J1030; J3010; J2795

== ENCOUNTER 2022-02-25 07:30 | Emergency (ER) | payer MEDICARE, BC ==
[2022-02-25 07:45] VITALS: BP 110/67; PULSE 72; RESP 18; TEMP 98
[2022-02-25] MEDS ORDERED: HYDROmorphone 1 MG/ML 1 ML SYRINGE IM STA (07:53)
--- NOTE | 2022-02-25 07:59 | ED ---
General Adult HPI - General Chief complaint: Extremity Injury, Lower Stated complaint: right hip pain Time Seen by Provider: 02/25/22 07:47 Source: patient, RN notes reviewed Mode of arrival: ambulatory Limitations: physical limitation - History of Present Illness Initial comments: 76-year-old male accompanied by presents to the emergency department for right hip pain. Patient saw orthopedist for this 6 weeks ago in which she was told he had bursitis given a steroid shot which was relieved his symptoms. Over the past 3 days he notes that the pain is worse. He usually is able to walk without assistance 3 days, he has had to use a cane or walker to get around. Describes as a constant sharp pain that occurs even at rest. He has been taking [place] without any relief of symptoms. Denies any fevers, numbness, tingling, saddle paresthesia, loss of bladder or bowel function. - Related Data Home Medications Medication Instructions Recorded Confirmed Atorvastatin [Lipitor] 10 mg PO DAILY 05/15/18 07/29/21 Amiodarone [Cordarone] 200 mg PO DAILY 06/29/21 07/30/21 HYDROcodone/APAP 5-325MG [[place] 1 tab PO TID PRN 06/29/21 07/29/21 5-325] Multivitamins, Thera [Multivitamin 1 tab PO DAILY 06/29/21 07/30/21 (formulary)] Sacubitril/Valsartan [Entresto 97 1 each PO BID 06/29/21 07/29/21 mg-103 mg Tablet] Spironolactone [Aldactone] 25 mg PO DAILY 07/29/21 07/30/21 carvediloL [Coreg] 12.5 mg PO BID 07/29/21 07/29/21 Allergies Allergy/AdvReac Type Severity Reaction Status Date / Time No Known Allergies Allergy Verified 02/25/22 07:45 Review of Systems ROS Statement: Those systems with pertinent positive or pertinent negative responses have been documented in the HPI. ROS Other: All systems not noted in ROS Statement are negative. Past Medical History Past Medical History: Atrial Fibrillation, Diabetes Mellitus, Hyperlipidemia, Hypertension, Prostate Disorder, Sleep Apnea/CPAP/BIPAP Additional Past Medical History / Comment(s): Cardiomyopathy, COMPLETE HEART BLOCK, hx BPH had surgery. degenerative disks, diet control diabetic-no rx History of Any Multi-Drug Resistant Organisms: None Reported Past Surgical History: AICD, Cardiac Ablation, Heart Catheterization, Joint Replacement, Orthopedic Surgery, Pacemaker, Prostate Surgery Additional Past Surgical History / Comment(s): Bilateral cataracts removed, TURP, bilateral knee replacements, pacemaker/AICD -later upgraded in 2018([employer]). Spinal nerve ablation 02/15/22 Past Anesthesia/Blood Transfusion Reactions: No Reported Reaction Type of Cardiac Device: AICD Device Placement Date:: 2017- [employer]tronic Past Psychological History: No Psychological Hx Reported Smoking Status: Former smoker Past Alcohol Use History: None Reported Past Drug Use History: None Reported - Past Family History Father Family Medical History: Cancer General Exam Limitations: physical limitation General appearance: alert, in no apparent distress Head exam: Present: atraumatic, normocephalic, normal inspection Eye exam: Present: normal appearance, PERRL, EOMI. Absent: scleral icterus, conjunctival injection, periorbital swelling ENT exam: Present: normal exam Neck exam: Present: normal inspection. Absent: tenderness, meningismus, lymphadenopathy Respiratory exam: Present: normal lung sounds bilaterally. Absent: respiratory distress, wheezes, rales, rhonchi, stridor Cardiovascular Exam: Present: regular rate, normal rhythm, normal heart sounds. Absent: systolic murmur, diastolic murmur, rubs, gallop, clicks GI/Abdominal exam: Present: soft, normal bowel sounds. Absent: distended, tenderness, guarding, rebound, rigid Extremities exam: Present: normal inspection, full ROM (R hip without evidence of trauma, edema, erythema. Painful to palpation to R sciatic notch. Limited ROM secondary to pain, distal NVI, 2+ DT/PT pulses bilaterally), normal capillary refill. Absent: tenderness, pedal edema, joint swelling, calf tenderness Back exam: Present: normal inspection Neurological exam: Present: alert, oriented X3, CN II-XII intact Psychiatric exam: Present: normal affect, normal mood Skin exam: Present: warm, dry, intact, normal color. Absent: rash Course Vital Signs 02/25/22 07:42 Temperature 98.0 F Pulse Rate 72 Respiratory 18 Rate Blood Pressure 110/67 O2 Sat by Pulse 98 Oximetry Medical Decision Making - Medical Decision Making 76-year-old male coming in for a chronic right hip pain. Patient was seen and evaluated in the emergency department. Pt had imaging performed. I interpreted the following: X-ray pelvis unremarkable for fracture. Patient was given Lidoderm patch and 1 mg of Dilaudid for symptomatic relief in the ED. I discussed in detail the results with the patient and his , they both verbalize understanding importance of follow-up with orthopedist. Patient was discharged in stable condition. I discussed the case with Dr. Layne Nando who agrees with plan and is agreeable to the plan for discharge. Disposition Clinical Impression: Chronic right hip pain Disposition: HOME SELF-CARE Condition: Stable Instructions (If sedation given, give patient instructions): Hip Pain (ED) Additional Instructions: Return to the nearest emergency department for worsening pain, numbness, tingling. Is patient prescribed a controlled substance at d/c from ED?: No Referrals: Missy Park DO [Primary Care Provider] - 1-2 days Time of Disposition: 09:23
--- NOTE | 2022-02-25 08:56 | XR ---
EXAMINATION TYPE: XR Hip Bilateral and AP pelvis DATE OF EXAM: 02/25/2022 COMPARISON: NONE HISTORY: Pain TECHNIQUE: A single AP view of the pelvis is obtained. Two views of the bilateral hip are obtained. FINDINGS: There is no acute fracture/dislocation evident in the pelvis. There is narrowing of the hi p joints bilaterally with hypertrophic changes of the acetabulum greater on the right. No erosive brit nges. Degenerative change lower lumbar spine.. IMPRESSION: 1. Bilateral hip arthropathy correlate for femoral acetabular impingement. Findings greater on the ri ght.
[2022-02-25] MEDS ORDERED: LIDOCAINE 5% PATCH TOPICAL SCH (09:00)
== END 2022-02-25 09:35 | disposition home or self-care (01) ==
LOC: EC 07:30
DX: G89.29 Other chronic pain (principal); M25.551 Pain in right hip; I48.91 Unspecified atrial fibrillation; E11.9 Type 2 diabetes mellitus without complications; E78.5 Hyperlipidemia, unspecified; I10 Essential (primary) hypertension; G47.30 Sleep apnea, unspecified; I42.9 Cardiomyopathy, unspecified; Z87.891 Personal history of nicotine dependence; Z79.899 Other long term (current) drug therapy
CPT/HCPCS: 99283 ×2; 96372 ×2; 73521; J1170

== ENCOUNTER → 2022-03-03 | Outpatient (CLI) | payer MEDICARE, BC ==
--- NOTE | 2022-03-03 15:16 | CT ---
EXAMINATION TYPE: CT lumbar spine wo con DATE OF EXAM: 03/03/2022 3:01 PM COMPARISON: 05/24/2021 HISTORY: Chronic Back Pain CT DLP: 1781 mGycm Automated exposure control for dose reduction was used. Unenhanced CT of the lumbar spine was performed. Bone and soft tissue window settings are submitted as well as coronal and sagittal reconstructions. L1-L2: There is evidence of vacuum disc. Ventral and dorsal spondylosis with posterior disc bulge. Mi ld effacement ventral thecal sac. No evidence for central stenosis or disc herniation. There is bilat eral neural foraminal encroachment. L2-L3: There is evidence of vacuum disc. Ventral and dorsal spondylosis with posterior disc bulge.Mil d central stenosis.There is bilateral neural foraminal encroachment. L3-L4: There is evidence of vacuum disc. Ventral and dorsal spondylosis with posterior disc bulge.Mil d central stenosis.There is bilateral neural foraminal encroachment. L4-L5: There is evidence of vacuum disc. Ventral and dorsal spondylosis with posterior disc bulge.Mil d central stenosis.There is bilateral neural foraminal encroachment. L5-S1: Normal disc space height. No disc herniation protrusion or central stenosis. No facet joint arthropathy. No evidence for foraminal encroachment. IMPRESSION: 1. Severe degenerative changes 2. central stenosis
== END | disposition home or self-care (01) ==
LOC: RADCTMAIN 14:27
PROVIDERS: ATTEND Orthopaedic Surgery
DX: M19.09 Primary osteoarthritis, other specified site (principal); M47.816 Spondylosis without myelopathy or radiculopathy, lumbar region; M48.061 Spinal stenosis, lumbar region without neurogenic claudication; G89.29 Other chronic pain
CPT/HCPCS: 72131

== ENCOUNTER → 2022-03-03 | Outpatient (CLI) | payer MEDICARE, BC ==
--- NOTE | 2022-03-03 15:36 | CT ---
EXAMINATION TYPE: CT hip RT wo con DATE OF EXAM: 03/03/2022 COMPARISON: None HISTORY: pain in rt hip CT DLP: 466 mGycm Automated exposure control for dose reduction was used. Unenhanced CT of the right hip was performed. Bone and soft tissue window settings are submitted. FINDINGS: [id number] degenerative joint space narrowing. There is no evidence for fracture or dislocation . No lytic or blastic osseous lesion noted. No soft tissue mass present. Pelvic structures appear unr emarkable. IMPRESSION: GENERATIVE CHANGES RIGHT HIP JOINT.
== END | disposition home or self-care (01) ==
LOC: RADCTMAIN 14:25
PROVIDERS: ATTEND Orthopaedic Surgery
DX: M16.11 Unilateral primary osteoarthritis, right hip (principal)

== ENCOUNTER → 2022-04-11 | Outpatient (CLI) | payer MEDICARE, BC ==
--- NOTE | 2022-04-11 15:25 | CT ---
EXAMINATION TYPE: CT lumbar spine wo con DATE OF EXAM: 04/11/2022 3:09 PM COMPARISON: Prior CT March 03, 2022 HISTORY: chronic low back pain. Pain for one to 2 years causing weakness into right leg. CT DLP: 1787 mGycm Automated exposure control for dose reduction was used. Unenhanced CT of the lumbar spine was performed. Bone and soft tissue window settings are submitted as well as coronal and sagittal reconstructions. Redemonstration of 5 lumbar type vertebra with sacralized left L5 segment. Persistent grade 1 retroli sthesis L1 on L2. Vertebral body heights are maintained. Multilevel disc desiccation and disc space n arrowing is redemonstrated. Osseous lesion suspected hemangioma superior L2 endplate coronal image 20 is redemonstrated. Axial images at T12-L1 level remain within normal limits. Axial images at L1-L2 level demonstrates spondylolisthesis with posterior spur from the inferior L1 l evel effacing the anterior thecal sac. Patent bilateral neural foramina. No significant change from p rior. Axial images at L2-L3 level show posterior spur disc complex effacing the anterior thecal sac along w ith mild to moderate facet arthropathy and ligamentum flavum hypertrophy effacing at least right late ral thecal sac. There is mild to moderate left-sided neural foraminal narrowing redemonstrated. No si gnificant change from prior. Axial images at L3-L4 level redemonstrate mild/moderate broad disc bulge with right foraminal disc pr otrusion component axial image 49 and [id number] facet arthropathy bilaterally. There is efface ment of the anterior and posterior lateral thecal sac. There is mild to moderate right greater than l eft bilateral neural foraminal narrowing redemonstrated. Axial images at L4-L5 level show [id number] facet arthropathy bilaterally. There is mild broad- based posterior disc protrusion. There is moderate right and mild left-sided anterior inferior neural foraminal narrowing redemonstrated. Axial images at L5-S1 level show sacralized left L5 segment. Spinal canal is preserved. Bilateral elvie ral foramina are patent. Some generalized atrophy of the visualized pancreas is seen. There is 1.9 cm vague low density area p osteriorly midpole of the right kidney axial image 17 suspicious for simple thin-walled cyst. There i s exophytic 3.3 cm thin-walled cyst or pole left kidney coronal image 4 redemonstrated anteriorly. IMPRESSION: Multilevel degenerative changes in the lumbar spine as detailed above. No significant ch jordan from recent CT.
== END | disposition home or self-care (01) ==
LOC: RADCTMAIN 14:53
PROVIDERS: ATTEND Orthopaedic Surgery Orthopaedic Surgery of the Spine
DX: M47.816 Spondylosis without myelopathy or radiculopathy, lumbar region (principal); M16.11 Unilateral primary osteoarthritis, right hip; M70.61 Trochanteric bursitis, right hip; M48.061 Spinal stenosis, lumbar region without neurogenic claudication; M25.551 Pain in right hip; M54.50 Low back pain, unspecified; M51.36 Other intervertebral disc degeneration, lumbar region; G89.29 Other chronic pain; M43.16 Spondylolisthesis, lumbar region
CPT/HCPCS: 72131

== ENCOUNTER 2022-05-18 06:53 | Inpatient (IN) | payer MEDICARE, BC ==
[2022-05-12 14:22] VITALS: BMI 39.0
[~2022-05-18 06:53] MED LIST changes: -LACTATED RINGERS 1,000 ML IV SCH; -LIDOCAINE 1% (10MG/ML) FOR IV START INTRADERMA PRN; +ceFAZolin 1,000 MG in SODIUM CHLORIDE 0.9% IRRIGATIO 1,000 ML IRRIGATION PRN; +ceFAZolin 3 GM in SODIUM CHLORIDE 0.9% 100 ML IVPB PRN
[2022-05-18] MEDS ORDERED: LIDOCAINE 1% (10MG/ML) FOR IV START INTRADERMA PRN (06:55)
[2022-05-18] MEDS ORDERED: ONDANSETRON 4 MG/2 ML VIAL IVP ONE (06:55)
[2022-05-18 08:13] LABS: Glucose,Whole Blood 120 mg/dL (70-110)
[2022-05-18] MEDS ORDERED: MIDAZOLAM 2 MG/2 ML VIAL IVP ONE (08:26)
[2022-05-18] MEDS ORDERED: fentaNYL (PF) 50 MCG/ML 2 ML AMP ONE (08:57)
[2022-05-18] MEDS: LACTATED RINGERS 1,000 ML IV SCH (08:57)
[2022-05-18] MEDS ORDERED: PHENYLEPHRINE-0.9% NACL SYG 1,000 MCG/10 ML SYRINGE ONE (08:57)
[2022-05-18] MEDS ORDERED: HEPARIN SODIUM,PORCINE 10,000 UNIT/ML 1 ML VIAL ONE (08:57)
[2022-05-18] MEDS ORDERED: SODIUM CHLORIDE 0.9% IRRIG 1,000 ML BTL IRRIGATION ONE (08:57)
[2022-05-18] MEDS ORDERED: ROCURONIUM 10 MG/ML (5 ML VIAL) IV ONE (08:57)
[2022-05-18] MEDS ORDERED: SUCCINYLCHOLINE CHLORIDE 200 MG/10 ML VIAL IV ONE (08:57)
[2022-05-18] MEDS ORDERED: LIDOCAINE 2% INJ 20 MG/ML (2 ML VIAL) ONE (08:57)
[2022-05-18] MEDS ORDERED: GLYCOPYRROLATE 0.2 MG/ML 2 ML VIAL ONE (08:57)
[2022-05-18] MEDS ORDERED: HYDROmorphone (PF) 1 MG/ML ONE (08:57)
[2022-05-18] MEDS ORDERED: NEOSTIGMINE 1 MG/ML 10 ML VIAL ONE (08:57)
[2022-05-18] MEDS ORDERED: MIDAZOLAM 2 MG/2 ML VIAL ONE (08:57)
[2022-05-18] MEDS ORDERED: ETOMIDATE 2 MG/ML 10 ML VIAL ONE (08:57)
[2022-05-18] MEDS ORDERED: LIDOCAINE 0.5%-EPI 1:200,000 50 ML VIAL SQ ONE (09:00)
[2022-05-18] MEDS ORDERED: GELATIN SPONGE,ABSORB (LARGE) 1 EACH SPONGE TOPICAL ONE (09:00)
[2022-05-18] MEDS ORDERED: THROMBIN (BOVINE) 5,000 UNIT VIAL TOPICAL ONE (09:00)
[2022-05-18 10:04] LABS: Allen Test Performed? Yes
[2022-05-18 10:06] LABS: ABG Base Excess -7.6 mmol/L; ABG HCO3 18 mmol/L (21-25); ABG Oxygen Saturation 98.5 % (94-97); ABG PCO2 36 mmHg (35-45); ABG PH 7.31 (7.35-7.45); ABG PO2 184 mmHg (83-108)
[2022-05-18 10:58] LABS: Glucose,Whole Blood 144 mg/dL (70-110)
--- NOTE | 2022-05-18 11:31 | P.ANPRN ---
Procedure Note - Anesthesia - Invasive Line Right Arterial Line Time Out Performed: Yes Date of Procedure: 05/18/22 Time of Procedure: 08:31 Location of Patient: PreOp Preparation: Sterile Prep, Sterile Dressing Arterial Line Location: Briachial Ultrasound Used: No Purpose - Visualization and Identification of Vasculature: No Image Stored and Saved: No Narrative: Central line placement per sterile protocol utilized.
[2022-05-18 12:18] LABS: Glucose,Whole Blood 141 mg/dL (70-110)
[2022-05-18 12:40] LABS: Allen Test Performed? Yes
[2022-05-18 12:42] LABS: ABG Base Excess -6.2 mmol/L; ABG HCO3 18 mmol/L (21-25); ABG Oxygen Saturation 98.7 % (94-97); ABG PCO2 35 mmHg (35-45); ABG PH 7.34 (7.35-7.45); ABG PO2 198 mmHg (83-108)
[2022-05-18] MEDS ORDERED: LACTATED RINGERS 1,000 ML IV ONE ×2 (13:50)
[2022-05-18 14:05] LABS: Glucose,Whole Blood 162 mg/dL (70-110)
[2022-05-18 14:15] LABS: Allen Test Performed? Yes
[2022-05-18 14:18] LABS: ABG Base Excess -6.3 mmol/L; ABG HCO3 18 mmol/L (21-25); ABG Oxygen Saturation 98.4 % (94-97); ABG PCO2 33 mmHg (35-45); ABG PH 7.35 (7.35-7.45); ABG PO2 167 mmHg (83-108)
--- NOTE | 2022-05-18 14:39 | FL ---
EXAMINATION TYPE: FL guidance operating room DATE OF EXAM: 05/18/2022 HISTORY: Fluoroscopy time 25 sec fl. 3177.9 DAP of fluoroscopy provided. IMPRESSION: 1. Fluoroscopy time.
[2022-05-18] MEDS ORDERED: MAGNESIUM HYDROXIDE 2,400 MG/10 ML CUP PO PRN (15:03)
[2022-05-18] MEDS ORDERED: SENNOSIDES-DOCUSATE SODIUM 1 EACH TAB PO PRN (15:03)
[2022-05-18] MEDS ORDERED: bisacodyL 10 MG SUPP RECTAL PRN (15:03)
[2022-05-18] MEDS ORDERED: ONDANSETRON 4 MG/2 ML VIAL IVP PRN (15:03)
[2022-05-18] MEDS ORDERED: TORSEMIDE 20 MG TAB PO PRN (15:14)
[2022-05-18] MEDS: HYDROmorphone 0.5 MG/0.5 ML SYRINGE IVP PRN ×4 (15:18→21:07)
--- NOTE | 2022-05-18 15:27 | P.OP ---
Date of Procedure: 05/18/22 Preoperative Diagnosis: Degenerative scoliosis lumbar spine, severe spinal stenosis L2-3 L3 4 L4 5, bilateral lower extremity radiculopathy, right lower extremity weakness, facet arthrosis, foraminal stenosis, low back pain Postoperative Diagnosis: Same Anesthesia: GETA Pathology: none sent Condition: stable Disposition: PACU (Flat in bed) Description of Procedure: DESCRIPTION OF PROCEDURE(S): BRIEF OPERATIVE NOTE Preoperative Diagnosis: Degenerative scoliosis lumbar spine, severe spinal stenosis L2-3 L3 4 L4 5, bilateral lower extremity radiculopathy, right lower extremity weakness, facet arthrosis, foraminal stenosis, low back pain, degenerative disc disease Postoperative Diagnosis: Same, plus incidental durotomy at L3 4 approximately 2- 1/2 mm in length Procedure: Laminectomy and decompression L2-3 L3 [address] navigation aided Minimally invasive Posterior lateral decompression and facet fusion L2-3 L3 4 L4 5 Use of computer navigation for fusion Local autogenous bone grafting Aspiration of bone marrow from the vertebral body pedicle Use of bone graft extenders Primary repair of Incidental durotomy at the level of L3 4 on the right that occurred during the decompression Surgeon: Dr. Knott Machine Binder Stripper: Sahil SHAIKH who is present throughout the entire the case persistence during positioning, dissection, exposure, visualization, and all crucial elements of the case as well as closure. Anesthesia: General anesthesia per the traversing Estimated blood loss: Approximately 1200 mL, with approximately 900 given back through Cell Saver Complications: None apparent Components implanted: K2M minimally invasive [place] pedicle screw system withscrews measuring 5.5 and 6.5 mm in diameter to rods with 10 mL of osteo amp bio4 bone graft substitute and 30 mL of the BX bone fibers and 2 strips of calcium bone supplement to supplement the local autogenous bone graft and bone marrow aspirate Disposition: To recovery room in good stable condition. OPERATIVE INDICATIONS The patient has had severe issues at their lower extremity in her lower back over the past several years with significant worsening over the past several months. Over the past few months the patient had pain at their back and their lower extremities. The patient is having severe radicular symptoms at their lower extremity with weakness. He is having particular weakness in his right lower extremity weakness lifting his hip and knee. The patient is having significant pain in their back. They are unable to obtain any comfort. We did aggressive conservative treatment with medications therapy and interventional pain management however thery were not having any relief. The patient also showed evidence of a degenerative scoliosis with some dynamic instability. The patient has been through conservative treatment. He had evidence of severe stenosis L2-3 L3 4 L4 5 and has significant issues with his cardiac function. We had long-standing about the issues at his back is weakness in his lower extremity and the possibilities of various treatments ranging from conservative to surgical. We discussed various treatment options including surgery, and the patient wishes to proceed with surgery We discussed the risk, patient's a lternatives and benefits of surgery including but not limited to, risk of bleeding risk of infection, risk of need for further surgery, risk of decreased, loss of motion, muscle function, malunion nonunion, hardware failure, nerve damage, paralysis, heart attack, blindness and . They understood issues with the current pandemic and the possibility of exposure. OPERATIVE SUMMARY After discussing all the risks, patient alternatives and benefits at length, the patient elected to proceed with surgical intervention, signed informed consent, and presented for their procedure. The patient was seen and examined in the preoperative holding area and the surgical site was marked. The patient was given antibiotics and brought to the operating room. The patient was sedated and intubated by anesthesia in standard fashion. The patient was positioned on to the operating room table in a prone position on the appropriate frame which was well-padded and well molded. We were careful to pad any bony prominences and pressure points. We were careful to maintain the patient's cervical spine and good neutral alignment and position throughout. The patient was prepped and draped in a normal standard fashion. An appropriate timeout and keystone protocol performed. We were able to proceed with the surgery. The local wound area was infiltrated with local anesthetic. Over the right iliac crest I was able to make small stab incisions and establish a guidepin screw fixation to the iliac crest 2. I was able place the computer referencing device over the guidepins to establish an appropriate reference point for the Ziem CT navigation. We then were able to place patient in an appropriate drape and do a navigation spin for visualization and 3-D reconstruction of the lumbar spine. I was able utilize C-arm guidance and navigation to establish appropriate position over the pedicles bilaterally at the appropriate levels at L2 L3 L4 and L5. With the appropriate levels confirmed was able to make small incisions over the appropriate pedicle sites bilaterally. Utilizing the computer navigation device I was able to establish bony landmarks at the right iliac crest for a bony reference point for the navigation device. I was able to establish a Jamshidi needle over the lateral aspect of the pedicle and advanced the trocar into the pedicle being careful not to breech superiorly inferiorly medially or laterally using computer navigation device. Position was confirmed regularly with AP and lateral images on C-arm and with the computer navigation device at the appropriate levels bilaterally. I was able to establish the trocar into the pedicle appropriately into the posterior aspect of the vertebral body bilaterally at the appropriate levels. This was done at each of the pedicle positions and each of the vertebrae. At the superior vertebrae I was able to take approximately 25 mL of bone aspiration for use later in the case to supplement the allograft and autograft bone. I was able place the guidewire into the trocar and into the vertebral body appropriately under C-arm guidance. Dissection was taken down over the wire to the appropriate starting position for the screw placed. The appropriate length screw was chosen, threaded over the guidewire and screwed appropriately into the pedicle and vertebral body under C-arm guidance in excellent alignment and position with good bony purchase. This is done at each of the screw sites at the appropriate levels L2 L3 L4 and L5 bilaterally. With the screws intact I extended the incision to connect the screw hole sites on the most symptomatic side on the right. I dissected down to establish access over the pars and lamina to the base of the spinous process. This had to start at L3 4 as this was the apex of his curvature and his most severe stenosis. I was able to expose the facet joint. The capsule the facet was taken down and showed some facet arthrosis at the joint. I was able to use a combination of curettes and Kerrison rongeurs and a high-speed drill to take down the facet joint and do a facetectomy. I was able get excellent foraminal decompression and central decompression with undermining across midline to perform a laminectomy centrally and contralaterally. As able get good central decompression. The ligamentum flavum was taken down to further decompress centrally and at bilateral neural foramen. Similar decompression was done at L4 5 and then at L2-3 as well. I was able to get good decompression at each level. However at L3 4 no was made of particularly severe stenosis. There was a large sharp osteophyte extending down and completely entrapping 3 traversing nerve root at that level. I was not able to free up the nerve from underneath the osteophyte. I tried to mobilize the tissue between osteophyte and the dura and decompressed removing portions of the bone with a combination of curettes and Kerrison rongeurs I was able to decompress the area however the dura was a dherent at the bone and this caused a dural tear incidentally. There were 2 areas of incidental durotomy at the L3 4 space with that particular decompression. One of the durotomies was approximately half a millimeter in size and the other durotomy was approximately 2-1/2 mm in length. I did not feel I had to repair the durotomy that was less than 1 mm as it seemed to be sealing appropriate. However at the other durotomy I did a direct repair with a 6-0 Prolene. I was able place one single stitch at the midportion of the tear and get good reapproximation after carefully returning any nerve strands back within the dura and getting good reapproximation of the margins of the dura itself. With this completed I felt I had good reapproximation of the durotomy. I placed Tisseel over the area and there was no evidence of further leaking. Great care was taken to try to cauterize with bipolar any epidural vessels and we are able to achieve this with meticulous technique at each level. Each of the levels had significant stenosis and minimal access to the disc space. With the durotomy repair at L3 4 I was very cautious for more manipulation of the dura itself and I did not feel I had good safe access to the disc space at that level for interbody component placement. I decided to forego the interbody device placement at each of the levels. I dissected out over the transverse processes decorticated the transverse processes this at L2 L3 L4 and L5 bilaterally and we're oblique place bone graft and allograft over the decorticated transverse processes in the posterior lateral gutters bilaterally. Good hemostasis maintained. There is no evidence of any dural tear or leak. The wound was irrigated and suctioned dry. With the hardware intact, intraoperative C-arm imaging was again taken which showed good alignment and position of the hardware at the appropriate levels. We were then able to measure, contour and place the rods and appropriate hardware bilaterally. I was able to place capcrews, tighten them down, and torque them with the torque screwdriver appropriately. With this intact I was able to place the local autogenous bone graft with additional bone graft en hancer as necessary into the posterior lateral gutters over the decorticated transverse processes and facet joints on the contralateral side. The remainder of the bone graft was placed over the facet joint on the contralateral side after taking down the facet joint capsule. With the bone graft intact, a stable construct, and good decompression at the appropriate levels, we were able to proceed with closure. Good hemostasis was maintained. There is no further evidence of dural tear or leak. The fascia was closed for a watertight closure. he subcuticular tissue was closed with absorbable suture. The wound was cleaned and dried and dressed with the appropriate dressing. The drapes were broken down. The patient was gently rolled back onto their hospital bed being careful to maintain their cervical spine and good neutral alignment and position. They were woken up by anesthesia, extubated, and brought to the recovery room in good stable condition. I will need to keep the patient on strict bed rest flat in bed without elevation of his head for least the next 48 hours to help allow appropriate sealing of the dural tear and repair. We will have him on prophylactic advice with Rocephin. The patient will be admitted to the hospital for appropriate postoperative care, medical management and monitoring. We will continue to follow them closely about the postoperative course.
[2022-05-18 16:14] LABS: Glucose,Whole Blood 173 mg/dL (70-110)
[2022-05-18] MEDS: HYDROcodone/APAP 10-325MG 1 EACH TAB PO PRN ×2 (17:25→22:50)
[2022-05-18 20:56] LABS: Glucose,Whole Blood 198 mg/dL (70-110)
[2022-05-18] MEDS: CYCLOBENZAPRINE 10 MG TAB PO PRN (21:10)
[2022-05-18] MEDS: SACUBITRIL/VALSARTAN 24 MG-26 MG TABLET PO SCH (21:15)
[2022-05-18] MEDS: INSULIN ASPART (NovoLOG) 100 UNIT/ML VIAL SQ SCH ×2 (23:22→23:23)
[2022-05-18] MEDS: SODIUM CHLORIDE 0.9% 1,000 ML IV SCH (23:24)
[2022-05-19] MEDS: HYDROmorphone 0.5 MG/0.5 ML SYRINGE IVP PRN ×4 (00:35→06:59)
[2022-05-19] MEDS: HYDROcodone/APAP 10-325MG 1 EACH TAB PO PRN ×4 (03:57→20:39)
[2022-05-19] MEDS: LACTATED RINGERS 1,000 ML IV SCH (03:59)
[2022-05-19] MEDS: diazePAM 5 MG TAB PO PRN ×2 (05:23→14:15)
[2022-05-19 06:39] LABS: Glucose,Whole Blood 171 mg/dL (70-110)
[2022-05-19] MEDS: INSULIN ASPART (NovoLOG) 100 UNIT/ML VIAL SQ SCH ×4 (06:56→21:57)
[2022-05-19 09:01] LABS: Basophils # (A) 0.03 X 10*3/uL (0.00-0.10); Basophils % (A) 0.2 %; Eosinophils # (A) 0 X 10*3/uL (0.04-0.35); Eosinophils % (A) 0 %; HCT 39.4 % (39.6-50.0); HGB 13.1 g/dL (13.0-17.0); Immature Grans, Automated 0.5 %; Lymphocytes % (A) 3.1 %; MCH 32.7 pg (27.0-32.0); MCHC 33.2 g/dL (32.0-37.0); MCV 98.3 fL (80.0-97.0); Mean Platelet Volume 8.6 fL (9.5-12.2); Monocytes # (A) 1.07 X 10*3/uL (0.20-1.00); Monocytes % (A) 6.7 %; NRBC Per 100 WBC 0 /100 WBCS (0.0-0.0); Neutrophils # (A) 14.26 X 10*3/uL (1.80-7.70); Neutrophils % (A) 89.5 %; Platelet Count 162 X 10*3/uL (140-440); RBC 4.01 X 10*6/uL (4.40-5.60); RDW 12.7 % (11.5-14.5); WBC 15.94 X 10*3/uL (4.50-10.00)
[2022-05-19 09:06] LABS: Anion Gap 10.7 mmol/L (10.00-18.00); BUN/Creat Ratio 23.3 Ratio (12.00-20.00); Blood Urea Nitrogen 23.3 mg/dL (9.0-27.0); Calcium 8.5 mg/dL (8.7-10.3); Carbon Dioxide 25.3 mmol/L (20.0-27.5); Non-African American GFR(CKD) 73.3 (60.0-200.0); Potassium 4.7 mmol/L (3.5-5.5)
[2022-05-19] MEDS: SENNOSIDES-DOCUSATE SODIUM 1 EACH TAB PO SCH (10:14)
[2022-05-19] MEDS: ASPIRIN 81 MG PO SCH (10:14)
[2022-05-19] MEDS: DAPAGLIFLOZIN PROPANEDIOL 5 MG TABLET PO SCH (10:15)
[2022-05-19] MEDS: ATORVASTATIN 10 MG TAB PO SCH (10:15)
[2022-05-19] MEDS: SACUBITRIL/VALSARTAN 24 MG-26 MG TABLET PO SCH ×2 (10:15→20:35)
[2022-05-19] MEDS: CYCLOBENZAPRINE 10 MG TAB PO PRN ×2 (10:15→20:40)
[2022-05-19] MEDS: SPIRONOLACTONE 25 MG TAB PO SCH (10:15)
--- NOTE | 2022-05-19 10:15 | P.PN ---
Progress Note - Text Progress Note Date: 05/19/22 Postoperative day #1 Patient is seen and examined today at bedside. The patient has some pain around the surgical site as expected. he is having some difficulty with the pain but Pain is being controlled with medication. he denies any headaches. Denies any fevers chills. Physical Exam the patient is flat on his back in bed. Afebrile with stable vital signs Abdomen is soft nontender. Chest has good excursion deep and space expiration Daily is intact Extremities have not had neurologic change from prior to surgery.He is able to move his feet and toes. He still has weakness at his right leg. Calves and thighs were soft nontender without evidence of DVT. Assessment/Plan Postoperative day #1 status post minimally invasive decompression fusion for degenerative scoliosis with severe spinal stenosis at L2-3 L3 4 L4 5 Incidental durotomy during surgery with primary repair Patient is progressing as expected from the surgery. he will need to stay flat on his back in bed likely until Monday evening or Monday morning to allow the dural repair to heal appropriately before we can start to elevate has had hand mobilize. We discussed this again today and he understands. It is okay to have his knee slightly bent and to have him we logroll if necessary for hygiene or bowel movements. We will continue his prophylactic antibiotics and his Daily catheter was in bed for now. We will continue to to hold off on any mobilization for now until we can have appropriate healing at the dura. We will continue pain control with oral or IV medications. We'll continue to follow patient closely.
[2022-05-19] MEDS: SODIUM CHLORIDE 0.9% 1,000 ML IV SCH (11:13)
[2022-05-19] MEDS: HYDROmorphone 1 MG/ML 1 ML SYRINGE IVP PRN ×3 (11:23→22:29)
[2022-05-19 11:30] LABS: Glucose,Whole Blood 157 mg/dL (70-110)
[2022-05-19 16:50] LABS: Glucose,Whole Blood 150 mg/dL (70-110)
[2022-05-19 19:57] LABS: Amorphous Sediment,Urine Rare /hpf; Appearance,Urine Turbid (Clear); Bilirubin,Urine Negative (Negative); Blood,Urine Small (Negative); Color,Urine Red; Glucose,Urine (UA) 3+ (Negative); Hyaline Casts,Urine 56 /lpf (0-2); Leukocyte Esterase,Urine Negative (Negative); Mucus,Urine Many /hpf; Nitrite,Urine Negative (Negative); PH, Urine 5.5 (5.0-8.0); Protein,Urine 2+ (Negative); RBC,Urine 56 /hpf (0-5); Specific Gravity,Urine 1.039 (1.001-1.035); Squamous Epithelial Cell,Urine 6 /hpf (0-4); Urobilinogen,Urine <2.0 mg/dL (<2.0); WBC,Urine 35 /hpf (0-5)
[2022-05-19 20:12] LABS: Ketones,Urine 2+ (Negative)
[2022-05-19 21:02] LABS: Glucose,Whole Blood 177 mg/dL (70-110)
--- NOTE | 2022-05-19 22:30 | P.CONS ---
History of Present Illness - Reason for Consult Consult date: 05/19/22 Medical management Requesting physician: Andi Knott - Chief Complaint Lumbar surgery - History of Present Illness This is a pleasant 76-year-old patient who follows with Dr. Missy Park. Chronic stable medical conditions include atrial fibrillation, diabetes, hypertension, hyperlipidemia, prostatitis, obstructive sleep apnea with CPAP, cardiac myopathy, complete heart block, BPH, pacemaker AICD, spinal nerve ablation in February 2022, watch for device Patient underwent surgery for DJD findings and lumbar spine with severe spinal stenosis region of L2-L5. Bilateral lower extremity radiculopathy right lower extremity weakness. Patient had a primary repair of incidental durotomy at that level of L3-L4. That occurred during the decompression. Patient is on complete bedrest for next 48 hours at least. Has a Gracia catheter. Pain is controlled. Patient really didn't have an appetite today. Did pass some flatus Review of systems: GEN.: Tired EYES: None HEENT: None NECK: None RESPIRATORY: None CARDIOVASCULAR: None GASTROINTESTINAL: None GENITOURINARY: gracia catheter MUSCULOSKELETAL: Chronic back pain LYMPHATICS: None HEMATOLOGICAL: None PSYCHIATRY: None NEUROLOGICAL: See above Past medical history to include: Severe DJD lumbar spine, atrial fibrillation, diabetes, hypertension, hyperlipidemia, osteoarthritis, BPH, obstructive sleep apnea uses CPAP, cardiomyopathy, complete heart block, pacemaker/AICD, watchman device Social history: . Retired. Stopped smoking more than 30 years ago. No alcohol. Physical examination: VITAL SIGNS: 98, 65, 18, 140s/69, 94% on 2 L GENERAL: BMI 39.2, laying on his back awake. EYES: Pupils equal. Conjunctiva normal. HEENT: External appearance of nose and ears normal, oral cavity grossly normal. NECK: JVD not raised; masses not palpable. HEART: First and second heart sounds are normal; no edema. LUNGS: Respiratory rate normal; clear to auscultation. ABDOMEN: Soft, nontender, liver spleen not palpable, no masses palpable. Gracia catheter PSYCH: Alert and oriented x3; mood and affect normal. MUSCULOSKELETAL:No Clubbing/cyanosis;muscles-grossly intact. NEUROLOGICAL: Cranial nerves grossly intact; no facial asymmetry, . LYMPHATICS: No lymph nodes palpable in the axilla and neck, INVESTIGATIONS, reviewed in the clinical context: White count 15.9 hemoglobin 13.1 platelets 162 sodium 139 potassium 4.7 creatinine 1 Assessment and plan: -Lumbar DJD, spinal stenosis, radicular neuropathy, right leg weakness. 05/18/2022: Underwent laminectomy and disc compression and bone grafting and primary repair to incidental durotomy at the level of L3-L4 on the right getting decompression. Patient lie flat on the bed for next at least [address] Mcdaniel. -Obesity BMI 39.2 Weight loss measures -Diabetes mellitus type 2, on oral hypoglycemic Jardiance. Follow Accu-Cheks with sliding scale -Hyperlipidemia Lipitor 10 mg -Essential hypertension Entresto 20/20 sig 1 tablet twice a day. -Primary osteoarthritis Pain control -BPH - obstructive sleep apnea uses CPAP -Cardiomyopathy, EF not known Entresto. Aldactone. -Pacemaker AICD Care was discussed with the patient. Questions answered. Past Medical History Past Medical History: Atrial Fibrillation, Diabetes Mellitus, Hyperlipidemia, Hypertension, Musculoskeletal Disorder, Osteoarthritis (OA), Prostate Disorder, Sleep Apnea/CPAP/BIPAP Additional Past Medical History / Comment(s): Uses device for sleep apnea. Cardiomyopathy, COMPLETE HEART BLOCK. Hx BPH, had surgery. Degenerative discs. History of Any Multi-Drug Resistant Organisms: None Reported Past Surgical History: AICD, Cardiac Ablation, Heart Catheterization, Joint Replacement, Orthopedic Surgery, Pacemaker, Prostate Surgery Additional Past Surgical History / Comment(s): Bilateral cataracts removed, TURP, bilateral knee replacements, pacemaker/AICD -later upgraded in 2018(Medtronic). Spinal nerve ablation 02/15/22, Watchman Device. Past Anesthesia/Blood Transfusion Reactions: No Reported Reaction Type of Cardiac Device: AICD Device Placement Date:: 2017- [employer] Past Psychological History: No Psychological Hx Reported Smoking Status: Former smoker Past Alcohol Use History: None Reported Additional Past Alcohol Use History / Comment(s): Quit smoking > 30 yrs ago. Past Drug Use History: None Reported - Past Family History Father Family Medical History: Cancer Medications and Allergies Home Medications Medication Instructions Recorded Confirmed Type Atorvastatin [Lipitor] 10 mg PO DAILY 05/15/18 05/18/22 History Spironolactone [Aldactone] 25 mg PO DAILY 07/29/21 05/18/22 History Aspirin [Adult Low Dose Aspirin EC] 81 mg PO DAILY 05/12/22 05/18/22 History Empagliflozin [Jardiance] 10 mg PO DAILY 05/12/22 05/18/22 History HYDROcodone/APAP 7.5-325MG [[place] 1 tab PO TID PRN 05/12/22 05/18/22 History 7.5-325] Sacubitril/Valsartan [Entresto 24 1 each PO BID 05/12/22 05/18/22 History mg-26 mg Tablet] Torsemide [Demadex] 10 mg PO DAILY PRN 05/12/22 05/18/22 History Allergies Allergy/AdvReac Type Severity Reaction Status Date / Time No Known Allergies Allergy Verified 05/18/22 07:39 Physical Exam Vitals: Vital Signs Temp Pulse Pulse Resp BP Pulse Ox 05/19/22 09:15 95 05/19/22 07:30 98.2 F 63 15 106/68 95 05/19/22 02:00 98.3 F 58 L 17 99/64 96 05/18/22 19:40 97.4 F L 57 L 17 106/71 96 05/18/22 18:00 97.9 F 68 16 115/69 95 05/18/22 17:50 96 05/18/22 17:00 97.6 F 61 15 111/73 95 05/18/22 16:22 59 L 12 104/60 95 05/18/22 16:06 63 14 95/52 99 05/18/22 15:51 59 L 15 105/60 97 05/18/22 15:36 60 21 95/56 95 05/18/22 15:21 60 24 112/55 99 05/18/22 15:06 97.4 F L 62 16 122/68 99 Intake and Output 05/18/22 05/19/22 05/19/22 22:59 06:59 14:59 Intake Total 740 600 Output Total 350 350 Balance 390 250 Intake: IV 200 Intake, IV Titration 600 Amount Sodium Chloride 0.9% 1, 600 000 ml @ 50 mls/hr IV . Q20H [facility] Rx#:[id number] Oral 540 Output: Urine 350 350 Other: Voiding Method Indwelling Catheter Weight 127.4 kg Results CBC & Chem 7: 05/19/22 06:05 05/19/22 06:05 Labs: Abnormal Lab Results - Last 24 Hours (Table) 05/18/22 05/18/22 05/18/22 Range/Units 10:03 10:56 12:16 WBC (4.50-10.00) X 10*3/uL RBC (4.40-5.60) X 10*6/uL Hct (39.6-50.0) % MCV (80.0-97.0) fL MCH (27.0-32.0) pg MPV (9.5-12.2) fL Immature Gran # (0.00-0.04) X 10*3/uL Neutrophils # (1.80-7.70) X 10*3/uL Lymphocytes # (0.90-5.00) X 10*3/uL Monocytes # (0.20-1.00) X 10*3/uL Eosinophils # (0.04-0.35) X 10*3/uL ABG pH 7.31 L (7.35-7.45) ABG pCO2 (35-45) mmHg ABG pO2 184 H (83-108) mmHg ABG HCO3 18 L (21-25) mmol/L ABG O2 Saturation 98.5 H (94-97) % BUN/Creatinine Ratio (12.00-20.00) Ratio Glucose (70-110) mg/dL POC Glucose (mg/dL) 144 H 141 H (70-110) mg/dL Calcium (8.7-10.3) mg/dL 05/18/22 05/18/22 05/18/22 Range/Units 12:18 14:00 14:02 WBC (4.50-10.00) X 10*3/uL RBC (4.40-5.60) X 10*6/uL Hct (39.6-50.0) % MCV (80.0-97.0) fL MCH (27.0-32.0) pg MPV (9.5-12.2) fL Immature Gran # (0.00-0.04) X 10*3/uL Neutrophils # (1.80-7.70) X 10*3/uL Lymphocytes # (0.90-5.00) X 10*3/uL Monocytes # (0.20-1.00) X 10*3/uL Eosinophils # (0.04-0.35) X 10*3/uL ABG pH 7.34 L (7.35-7.45) ABG pCO2 33 L (35-45) mmHg ABG pO2 198 H 167 H (83-108) mmHg ABG HCO3 18 L 18 L (21-25) mmol/L ABG O2 Saturation 98.7 H 98.4 H (94-97) % BUN/Creatinine Ratio (12.00-20.00) Ratio Glucose (70-110) mg/dL POC Glucose (mg/dL) 162 H (70-110) mg/dL Calcium (8.7-10.3) mg/dL 05/18/22 05/18/22 05/19/22 Range/Units 16:12 20:54 06:05 WBC 15.94 H (4.50-10.00) X 10*3/uL RBC 4.01 L (4.40-5.60) X 10*6/uL Hct 39.4 L (39.6-50.0) % MCV 98.3 H (80.0-97.0) fL MCH 32.7 H (27.0-32.0) pg MPV 8.6 L (9.5-12.2) fL Immature Gran # 0.08 H (0.00-0.04) X 10*3/uL Neutrophils # 14.26 H (1.80-7.70) X 10*3/uL Lymphocytes # 0.50 L (0.90-5.00) X 10*3/uL Monocytes # 1.07 H (0.20-1.00) X 10*3/uL Eosinophils # 0 L (0.04-0.35) X 10*3/uL ABG pH (7.35-7.45) ABG pCO2 (35-45) mmHg ABG pO2 (83-108) mmHg ABG HCO3 (21-25) mmol/L ABG O2 Saturation (94-97) % BUN/Creatinine Ratio (12.00-20.00) Ratio Glucose (70-110) mg/dL POC Glucose (mg/dL) 173 H 198 H (70-110) mg/dL Calcium (8.7-10.3) mg/dL 05/19/22 05/19/22 Range/Units 06:05 06:37 WBC (4.50-10.00) X 10*3/uL RBC (4.40-5.60) X 10*6/uL Hct (39.6-50.0) % MCV (80.0-97.0) fL MCH (27.0-32.0) pg MPV (9.5-12.2) fL Immature Gran # (0.00-0.04) X 10*3/uL Neutrophils # (1.80-7.70) X 10*3/uL Lymphocytes # (0.90-5.00) X 10*3/uL Monocytes # (0.20-1.00) X 10*3/uL Eosinophils # (0.04-0.35) X 10*3/uL ABG pH (7.35-7.45) ABG pCO2 (35-45) mmHg ABG pO2 (83-108) mmHg ABG HCO3 (21-25) mmol/L ABG O2 Saturation (94-97) % BUN/Creatinine Ratio 23.30 H (12.00-20.00) Ratio Glucose 178 H (70-110) mg/dL POC Glucose (mg/dL) 171 H (70-110) mg/dL Calcium 8.5 L (8.7-10.3) mg/dL
[2022-05-20] MEDS: diazePAM 5 MG TAB PO PRN ×2 (01:11→19:30)
[2022-05-20] MEDS: HYDROcodone/APAP 10-325MG 1 EACH TAB PO PRN ×2 (01:11→23:00)
[2022-05-20] MEDS: SODIUM CHLORIDE 0.9% 1,000 ML IV SCH ×2 (02:24→22:32)
[2022-05-20 06:12] LABS: Glucose,Whole Blood 135 mg/dL (70-110)
[2022-05-20] MEDS: INSULIN ASPART (NovoLOG) 100 UNIT/ML VIAL SQ SCH ×4 (06:16→21:38)
[2022-05-20] MEDS: SACUBITRIL/VALSARTAN 24 MG-26 MG TABLET PO SCH ×2 (08:48→21:38)
[2022-05-20] MEDS: ATORVASTATIN 10 MG TAB PO SCH (08:50)
[2022-05-20] MEDS: SENNOSIDES-DOCUSATE SODIUM 1 EACH TAB PO SCH (08:51)
[2022-05-20] MEDS: SPIRONOLACTONE 25 MG TAB PO SCH (08:51)
[2022-05-20] MEDS: ASPIRIN 81 MG PO SCH (08:51)
[2022-05-20] MEDS: DAPAGLIFLOZIN PROPANEDIOL 5 MG TABLET PO SCH (08:51)
--- NOTE | 2022-05-20 10:13 | P.CRDCN ---
History of Present Illness Consult date: 05/20/22 Consult reason: congestive heart failure History of present illness: History of present illness: This is a 76-year-old male patient of Dr. Grimes past medical history of paroxysmal atrial fibrillation status post cardioversion and watchman procedure, chronic systolic heart failure with last known ejection fraction is 35% status post AICD placement, history of complete heart block, hypertension, dyslipidemia, nonischemic cardiomyopathy and diabetes mellitus. We have been asked to see the patient regarding heart failure. Patient was brought into the hospital and underwent lumbar surgery. Patient is now lying flat on his back due to a dural tear. Patient denies having any chest pain, no shortness of breath. He states he's been taking all of his medications as directed by his pie maker machine. His Entresto has been on hold due to soft blood pressure readings. Home cardiac medications: Aspirin 81 mg daily, atorvastatin 10 mg daily, Jardiance 10 mg daily, Entresto 24 mg26 mg twice daily, Aldactone 25 mg daily, Demadex 10 mg as needed Review Of Systems: At the time of my evaluation: Constitutional: No fever, no chills. No weakness, fatigue or lethargy. EENT: No headache. No dizziness. Lungs: No shortness of breath, cough, no sputum production. No wheezing. Cardiovascular: No chest pain, no lower extremity edema. No palpitations. No paroxysmal nocturnal dyspnea. No orthopnea. No lightheadedness or dizziness. No syncopal episodes. Neurologic: No aphasia. No facial droop. No change in mentation. No head injury. No headache. Physical examination: Gen: This is a 76-year-old male. He is laying flat in bed and appears to be comfortable, no respiratory distress. VS: reviewed HEENT: Head is atraumatic, normocephalic. Pupils equal, round. Sclerae is anicteric. NECK: Supple. No JVD. . LUNGS: Clear to auscultation. No wheezes or rhonchi. No intercostal retractions. HEART: Regular rate and rhythm. Systolic ejection murmur at the left sternal border. ABDOMEN: Soft No tenderness. EXTREMITIES: No pedal edema. No calf tenderness. NEUROLOGICAL: Patient is awake, alert and oriented x3. Assessment: Paroxysmal atrial fibrillation status post cardioversion and watchman procedure Chronic systolic heart failure AICD History of complete heart block Hypertension Dyslipidemia Nonischemic cardiomyopathy Diabetes Lumbar surgery Plan: Continue patient's home medications, add an Entresto once blood pressure is improved No cardiac workup at this time Cardiology will sign off this case and follow on an as-needed basis. Please reconsult for any new concerns. Patient may follow-up with Cornelio as an OP. Thank you kindly for this consultation. Nurse practitioner note has been reviewed, I agree with documented findings and plan of care. Patient was seen and examined. Past Medical History Past Medical History: Atrial Fibrillation, Diabetes Mellitus, Hyperlipidemia, Hypertension, Musculoskeletal Disorder, Osteoarthritis (OA), Prostate Disorder, Sleep Apnea/CPAP/BIPAP Additional Past Medical History / Comment(s): Uses device for sleep apnea. Cardiomyopathy, COMPLETE HEART BLOCK. Hx BPH, had surgery. Degenerative discs. History of Any Multi-Drug Resistant Organisms: None Reported Past Surgical History: AICD, Cardiac Ablation, Heart Catheterization, Joint Replacement, Orthopedic Surgery, Pacemaker, Prostate Surgery Additional Past Surgical History / Comment(s): Bilateral cataracts removed, TURP, bilateral knee replacements, pacemaker/AICD -later upgraded in 2018([employer]). Spinal nerve ablation 02/15/22, Watchman Device. Past Anesthesia/Blood Transfusion Reactions: No Reported Reaction Type of Cardiac Device: AICD Device Placement Date:: 2017- medtronic Past Psychological History: No Psychological Hx Reported Smoking Status: Former smoker Past Alcohol Use History: None Reported Additional Past Alcohol Use History / Comment(s): Quit smoking > 30 yrs ago. Past Drug Use History: None Reported - Past Family History Father Family Medical History: Cancer Medications and Allergies Home Medications Medication Instructions Recorded Confirmed Type Atorvastatin [Lipitor] 10 mg PO DAILY 05/15/18 05/18/22 History Spironolactone [Aldactone] 25 mg PO DAILY 07/29/21 05/18/22 History Aspirin [Adult Low Dose Aspirin EC] 81 mg PO DAILY 05/12/22 05/18/22 History Empagliflozin [Jardiance] 10 mg PO DAILY 05/12/22 05/18/22 History HYDROcodone/APAP 7.5-325MG [[place] 1 tab PO TID PRN 05/12/22 05/18/22 History 7.5-325] Sacubitril/Valsartan [Entresto 24 1 each PO BID 05/12/22 05/18/22 History mg-26 mg Tablet] Torsemide [Demadex] 10 mg PO DAILY PRN 05/12/22 05/18/22 History Allergies Allergy/AdvReac Type Severity Reaction Status Date / Time No Known Allergies Allergy Verified 05/18/22 07:39 Physical Exam Vitals: Vital Signs Temp Pulse Resp BP Pulse Ox 05/20/22 09:27 85 L 05/20/22 07:14 98.0 F 57 L 19 93/62 91 L 05/20/22 03:04 60 106/65 05/20/22 02:00 97.6 F 60 18 86/51 93 L 05/19/22 20:00 18 05/19/22 19:16 98.6 F 60 17 95/57 90 L 05/19/22 16:11 98.0 F 65 18 114/69 94 L 05/19/22 13:50 98.3 F 88 17 106/66 94 L Intake and Output 05/19/22 05/20/22 05/20/22 22:59 06:59 14:59 Intake Total 540 Balance 540 Intake: Oral 540 Other: Voiding Method Indwelling Catheter Results 05/19/22 06:05 05/19/22 06:05 Current Medications Generic Name Dose Route Start Last Admin Trade Name Freq PRN Reason Stop Dose Admin Hydrocodone Bitart/Acetaminophen 1 each 05/18/22 15:02 05/20/22 01:11 Hydrocodone/Apap 10-325mg 1 Each Tab PO 06/17/22 15:03 1 each Q4H PRN Administration Pain Aspirin 81 mg 05/19/22 09:00 05/20/22 08:51 Aspirin 81 Mg PO 81 mg DAILY AMANDA Administration Atorvastatin Calcium 10 mg 05/19/22 09:00 05/20/22 08:50 Atorvastatin 10 Mg Tab PO 10 mg DAILY AMANDA Administration Bisacodyl 10 mg 05/18/22 15:03 Bisacodyl 10 Mg Supp RECTAL 06/17/22 15:04 DAILY PRN Constipation Cyclobenzaprine HCl 10 mg 05/18/22 15:03 05/19/22 20:40 Cyclobenzaprine 10 Mg Tab PO 06/17/22 15:04 10 mg TID PRN Administration Muscle Spasm Dapagliflozin 5 mg 05/19/22 09:00 05/20/22 08:51 Dapagliflozin Propanediol 5 Mg Tablet PO 5 mg DAILY AMANDA Administration Diazepam 5 mg 05/18/22 15:02 05/20/22 01:11 Diazepam 5 Mg Tab PO 06/17/22 15:03 5 mg QID PRN Administration Anxiety Hydromorphone HCl 0.5 mg 05/18/22 15:02 05/19/22 06:59 Hydromorphone 0.5 Mg/0.5 Ml Syringe IVP 06/17/22 15:03 0.5 mg Q4HR PRN Administration Pain Hydromorphone HCl 1 mg 05/18/22 15:02 05/19/22 22:29 Hydromorphone 1 Mg/Ml 1 Ml Syringe IVP 06/17/22 15:03 1 mg Q4HR PRN Administration Pain Sodium Chloride 1,000 mls @ 50 mls/hr 05/18/22 15:15 05/20/22 02:24 Saline 0.9% IV 06/17/22 15:16 Not Given .Q20H AMANDA Ceftriaxone Sodium 2 gm/ 50 mls @ 100 mls/hr 05/18/22 15:15 05/20/22 08:50 Sodium Chloride IVPB 05/20/22 23:59 100 mls/hr Q24HR AMANDA Administration Protocol Insulin Aspart 0 unit 05/18/22 23:15 05/20/22 06:16 Insulin Aspart (Novolog) 100 Unit/Ml Vial SQ Not Given [facility] Protocol Lidocaine HCl 0.1 ml 05/18/22 06:55 Lidocaine 1% (10mg/Ml) For Iv Start INTRADERMA 06/17/22 06:56 PER PROTOCOL PRN IV Start Magnesium Hydroxide 2,400 mg 05/18/22 15:03 Magnesium Hydroxide 2,400 Mg/10 Ml Cup PO 06/17/22 15:04 DAILY PRN Constipation Ondansetron HCl 4 mg 05/18/22 15:03 05/19/22 17:30 Ondansetron 4 Mg/2 Ml Vial IVP 06/17/22 15:04 4 mg Q8HR PRN Administration Nausea And Vomiting Sacubitril/Valsartan 1 each 05/18/22 21:00 05/20/22 08:48 Sacubitril/Valsartan 24 Mg-26 Mg Tablet PO Not Given BID AMANDA Senna/Docusate Sodium 1 each 05/19/22 09:00 05/20/22 08:51 Sennosides-Docusate Sodium 1 Each Tab PO 06/18/22 09:01 1 each DAILY AMANDA Administration Senna/Docusate Sodium 2 each 05/18/22 15:03 Sennosides-Docusate Sodium 1 Each Tab PO 06/17/22 15:04 DAILY PRN Constipation Spironolactone 25 mg 05/19/22 09:00 05/20/22 08:51 Spironolactone 25 Mg Tab PO 25 mg DAILY AMANDA Administration Torsemide 10 mg 05/18/22 15:14 Torsemide 20 Mg Tab PO DAILY PRN Swelling Intake and Output 05/19/22 05/20/22 05/20/22 22:59 06:59 14:59 Intake Total 540 Balance 540 Intake: Oral 540 Other: Voiding Method Indwelling Catheter 05/19/22 06:05 05/19/22 06:05
[2022-05-20 11:33] LABS: Glucose,Whole Blood 130 mg/dL (70-110)
[2022-05-20] MEDS: HYDROmorphone 1 MG/ML 1 ML SYRINGE IVP PRN ×2 (11:57→19:30)
--- NOTE | 2022-05-20 11:57 | P.PN ---
Progress Note - Text Progress Note Date: 05/20/22 Postoperative day #2 Patient is seen and examined today at bedside. The patient has some pain around the surgical site as expected. Pain is being controlled with medication. He is not complaining of any headaches. We saw him flat in bed. He does not notice any difference with his legs .This morning he did roll over on his own but did not have any symptoms with this. Physical Exam Afebrile with stable vital signs Abdomen is soft nontender. Chest has good excursion deep and space expiration He is selling flat on his back though he has not had any apparent saturation for drainage. The Daily still intact. Extremities have not had neurologic change from prior to surgery.He has sustai jack dorsal flexion plantarflexion intact at his lower extremities Calves and thighs were soft nontender without evidence of DVT. Assessment/Plan Postoperative day #2 status post minimally invasive decompression and fusion L2 through L3 4 L4 5 Incidental durotomy at the time of surgery status post primary repair Patient is progressing as expected from the surgery. We still need to keep him flat in bed until tomorrow morning. In the morning at approximately 7 AM we will have him start elevate head of his bed to see if he remains symptomatic for spinal leak. If he is having symptoms with significant headaches we will have him lay flat again and maintain this. However if he is not having symptoms of spinal leak and we can start to advance his mobilization with sitting up and mobility. We will plan to increase the patient's mobilization with therapy On Monday tomorrow if patient is not symptomatic with postural changes for evidence of spinal leak. We will continue pain control with oral or IV medications. We'll continue to follow patient closely.
--- NOTE | 2022-05-20 14:50 | P.PN ---
Progress Note - Text Progress Note Date: 05/20/22 - Chief Complaint Lumbar surgery Hospital course: This is a pleasant 76-year-old patient who follows with Dr. Missy Park. Chronic stable medical conditions include atrial fibrillation, diabetes, hypertension, hyperlipidemia, prostatitis, obstructive sleep apnea with CPAP, cardiac myopathy, complete heart block, BPH, pacemaker AICD, spinal nerve ablation in February 2022, watch for device Patient underwent surgery for DJD findings and lumbar spine with severe spinal stenosis region of L2-L5. Bilateral lower extremity radiculopathy right lower extremity weakness. Patient had a primary repair of incidental durotomy at that level of L3-L4. That occurred during the decompression. Patient is on complete bedrest for next 48 hours at least. Has a Daily catheter. Pain is controlled. Patient really didn't have an appetite today. Did pass some flatus 05/20/2022: Remains in bedrest. Pain fairly controlled. Eating some. No headache. No symptoms of spinal fluid leak. Gentle hydration. Currently was consulted given the history of cardio myopathy Active Medications Hydrocodone Bitart/Acetaminophen (Hydrocodone/Apap 10-325mg 1 Each Tab) 1 each PO Q4H PRN PRN Reason: Pain Stop: 06/17/22 15:03 Last Admin: 05/20/22 01:11 Dose: 1 each Aspirin (Aspirin 81 Mg) 81 mg PO DAILY [facility] Last Admin: 05/20/22 08:51 Dose: 81 mg Atorvastatin Calcium (Atorvastatin 10 Mg Tab) 10 mg PO DAILY [facility] Last Admin: 05/20/22 08:50 Dose: 10 mg Bisacodyl (Bisacodyl 10 Mg Supp) 10 mg RECTAL DAILY PRN PRN Reason: Constipation Stop: 06/17/22 15:04 Cyclobenzaprine HCl (Cyclobenzaprine 10 Mg Tab) 10 mg PO TID PRN PRN Reason: Muscle Spasm Stop: 06/17/22 15:04 Last Admin: 05/19/22 20:40 Dose: 10 mg Dapagliflozin (Dapagliflozin Propanediol 5 Mg Tablet) 5 mg PO DAILY [facility] Last Admin: 05/20/22 08:51 Dose: 5 mg Diazepam (Diazepam 5 Mg Tab) 5 mg PO QID PRN PRN Reason: Anxiety Stop: 06/17/22 15:03 Last Admin: 05/20/22 01:11 Dose: 5 mg Hydromorphone HCl (Hydromorphone 0.5 Mg/0.5 Ml Syringe) 0.5 mg IVP Q4HR PRN PRN Reason: Pain Stop: 06/17/22 15:03 Last Admin: 05/19/22 06:59 Dose: 0.5 mg Hydromorphone HCl (Hydromorphone 1 Mg/Ml 1 Ml Syringe) 1 mg IVP Q4HR PRN PRN Reason: Pain Stop: 06/17/22 15:03 Last Admin: 05/20/22 11:57 Dose: 1 mg Sodium Chloride (Saline 0.9%) 1,000 mls @ 50 mls/hr IV .Q20H [facility] Stop: 06/17/22 15:16 Last Admin: 05/20/22 02:24 Dose: Not Given Ceftriaxone Sodium 2 gm/ (Sodium Chloride) 50 mls @ 100 mls/hr IVPB Q24HR [facility]; Protocol Stop: 05/20/22 23:59 Last Admin: 05/20/22 08:50 Dose: 100 mls/hr Insulin Aspart (Insulin Aspart (Novolog) 100 Unit/Ml Vial) 0 unit SQ ACHS [facility]; Protocol Last Admin: 05/20/22 11:41 Dose: Not Given Lidocaine HCl (Lidocaine 1% (10mg/Ml) For Iv Start) 0.1 ml INTRADERMA PER PROTOCOL PRN PRN Reason: IV Start Stop: 06/17/22 06:56 Magnesium Hydroxide (Magnesium Hydroxide 2,400 Mg/10 Ml Cup) 2,400 mg PO DAILY PRN PRN Reason: Constipation Stop: 06/17/22 15:04 Ondansetron HCl (Ondansetron 4 Mg/2 Ml Vial) 4 mg IVP Q8HR PRN PRN Reason: Nausea And Vomiting Stop: 06/17/22 15:04 Last Admin: 05/19/22 17:30 Dose: 4 mg Sacubitril/Valsartan (Sacubitril/Valsartan 24 Mg-26 Mg Tablet) 1 each PO BID [facility] Last Admin: 05/20/22 08:48 Dose: Not Given Senna/Docusate Sodium (Sennosides-Docusate Sodium 1 Each Tab) 1 each PO DAILY [facility] Stop: 06/18/22 09:01 Last Admin: 05/20/22 08:51 Dose: 1 each Senna/Docusate Sodium (Sennosides-Docusate Sodium 1 Each Tab) 2 each PO DAILY PRN PRN Reason: Constipation Stop: 06/17/22 15:04 Spironolactone (Spironolactone 25 Mg Tab) 25 mg PO DAILY [facility] Last Admin: 05/20/22 08:51 Dose: 25 mg Torsemide (Torsemide 20 Mg Tab) 10 mg PO DAILY PRN PRN Reason: Swelling Past medical history to include: Severe DJD lumbar spine, atrial fibrillation, diabetes, hypertension, hyperlipidemia, osteoarthritis, BPH, obstructive sleep apnea uses CPAP, cardiomyopathy, complete heart block, pacemaker/AICD, watchman device Social history: . Retired. Stopped smoking more than 30 years ago. No alcohol. Physical examination: VITAL SIGNS: 98, 57, 19, 93 was 62, 91% on room air GENERAL: BMI 39.2, laying on his back, not in distress EYES: Pupils equal. Conjunctiva normal. HEENT: External appearance of nose and ears normal, oral cavity grossly normal. NECK: JVD not raised; masses not palpable. HEART: First and second heart sounds are normal; no edema. LUNGS: Respiratory rate normal; clear to auscultation. ABDOMEN: Soft, nontender, liver spleen not palpable, no masses palpable. Daily catheter PSYCH: Alert and oriented x3; mood and affect normal. MUSCULOSKELETAL:No Clubbing/cyanosis;muscles-grossly intact. NEUROLOGICAL: Cranial nerves grossly intact; no facial asymmetry, . INVESTIGATIONS, reviewed in the clinical context: White count 15.9 hemoglobin 13.1 platelets 162 sodium 139 potassium 4.7 creatinine 1 Assessment and plan: -Lumbar DJD, spinal stenosis, radicular neuropathy, right leg weakness. 05/18/2022: Underwent laminectomy and disc compression and bone grafting and primary repair to incidental durotomy at the level of L3-L4 on the right getting decompression. Patient lie flat on the bed tomorrow morning at least. No headaches. Watch for spinal leak -Obesity BMI 39.2 Weight loss measures -Diabetes mellitus type 2, on oral hypoglycemic Jardiance. Follow Accu-Cheks with sliding scale -Hyperlipidemia Lipitor 10 mg -Essential hypertension Entresto 20/20 sig 1 tablet twice a day. With cardiology. -Primary osteoarthritis Pain control -BPH - obstructive sleep apnea uses CPAP -Cardiomyopathy, EF not known Entresto. Aldactone. -Pacemaker AICD Bedrest. Continue current medications. Discussed with patient.
[2022-05-20 16:47] LABS: Glucose,Whole Blood 137 mg/dL (70-110)
[2022-05-20 21:34] LABS: Glucose,Whole Blood 131 mg/dL (70-110)
[2022-05-21] MEDS: HYDROmorphone 1 MG/ML 1 ML SYRINGE IVP PRN ×3 (00:40→16:56)
[2022-05-21] MEDS: HYDROcodone/APAP 10-325MG 1 EACH TAB PO PRN ×3 (03:37→11:27)
[2022-05-21] MEDS: CYCLOBENZAPRINE 10 MG TAB PO PRN ×2 (03:38→09:47)
[2022-05-21 06:12] LABS: Glucose,Whole Blood 135 mg/dL (70-110)
[2022-05-21] MEDS: INSULIN ASPART (NovoLOG) 100 UNIT/ML VIAL SQ SCH ×4 (06:14→21:22)
--- NOTE | 2022-05-21 07:48 | P.PN ---
Progress Note - Text Progress Note Date: 05/21/22 Postoperative day #3 Patient is seen and examined today at bedside. At bedside today set patient up to approximately 45. He remained there for at least 15 minutes and was not having any evidence of any postural headaches. He has some spasm in his low back with motion but was not having any reported headaches. He denies any fevers or chills. He denies any night sweats. Denies any nausea or vomiting. He has not been eating very much but is starting to feel hungry today. The patient has some pain around the surgical site as expected. Pain is being controlled with medication. Physical Exam Afebrile with stable vital signs Abdomen is soft nontender. Chest has good excursion deep and space expiration The incision site is clean dry and intact. No erythema there is no purulence. Extremities have not had neurologic change from prior to surgery. He is able to mobilize his toes and knees Calves and thighs were soft nontender without evidence of DVT. Assessment/Plan Postoperative day #3 status post minimally invasive decompression fusion L2 3 L3 4 L4 5 for his degenerative scoliosis with severe spinal stenosis Incidental durotomy status post primary repair at the time of surgery No current evidence of active dural leak with change in posture and upright seating at 45 this morning Patient is starting to make some progress from the surgery with his mobility. We were able to sit him up to 45 in bed and he is not having any evidence of spinal headaches. This is quite encouraging and I think that we can go ahead and start him on mobilization and activity with physical therapy. We can certainly increase his activity as he is able tolerate. We will continue to increase the patient's mobilization with therapy. For mobilization and ambulation. He may need discharge planning and we will have case management see him. We can discontinue the Daily catheter. We should encourage his incentive spirometry which I did for him at bedside. It seems that we will be able to start to increase his mobilization, however if he is having issues with postural headaches we may have to lay him back down supine. I will have the staff report to me if this issue occurs. Otherwise we will start to increase his activity and mobilization and ambulation. We will continue pain control with oral or IV medications. We'll continue to follow patient closely.
[2022-05-21] MEDS: SPIRONOLACTONE 25 MG TAB PO SCH (09:10)
[2022-05-21] MEDS: ATORVASTATIN 10 MG TAB PO SCH (09:10)
[2022-05-21] MEDS: ASPIRIN 81 MG PO SCH (09:10)
[2022-05-21] MEDS: DAPAGLIFLOZIN PROPANEDIOL 5 MG TABLET PO SCH (09:10)
[2022-05-21] MEDS: SENNOSIDES-DOCUSATE SODIUM 1 EACH TAB PO SCH (09:10)
[2022-05-21] MEDS: SACUBITRIL/VALSARTAN 24 MG-26 MG TABLET PO SCH ×2 (09:14→20:48)
--- NOTE | 2022-05-21 11:23 | XR ---
EXAMINATION TYPE: XR chest 1V DATE OF EXAM: 05/21/2022 11:09 AM COMPARISON: Chest radiographs from 03/08/2023 TECHNIQUE: XR chest 1V Frontal view of the chest. CLINICAL INDICATION:Male, 76 years old with history of CHF; FINDINGS: Lungs/Pleura: There is no evidence of pleural effusion, focal consolidation, or pneumothorax. Pulmonary vascularity: Pulmonary vascular congestion. Heart/mediastinum: Cardiomediastinal silhouette is enlarged and stable. Atherosclerotic calcificatio ns are seen in the aorta. Three lead cardiac conduction device overlying the left hemithorax with camila d tips projecting over the right ventricle, right atrium and coronary sinus. Musculoskeletal: No acute osseous pathology. IMPRESSION: Cardiomegaly with suspected bilateral pleural effusions correlate with serum BNP.
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
[2022-05-21 11:54] LABS: Glucose,Whole Blood 133 mg/dL (70-110)
[2022-05-21] MEDS ORDERED: FUROSEMIDE 10 MG/ML 2 ML VIAL IV ONE (12:00)
[2022-05-21 16:52] LABS: Glucose,Whole Blood 231 mg/dL (70-110)
[2022-05-21 21:15] LABS: Glucose,Whole Blood 197 mg/dL (70-110)
[2022-05-21] MEDS: HYDROmorphone 0.5 MG/0.5 ML SYRINGE IVP PRN (23:48)
[2022-05-22] MEDS: HYDROcodone/APAP 10-325MG 1 EACH TAB PO PRN ×3 (05:10→18:55)
[2022-05-22] MEDS: CYCLOBENZAPRINE 10 MG TAB PO PRN (06:22)
[2022-05-22 06:36] LABS: Glucose,Whole Blood 214 mg/dL (70-110)
[2022-05-22] MEDS: INSULIN ASPART (NovoLOG) 100 UNIT/ML VIAL SQ SCH ×4 (06:49→20:39)
[2022-05-22] MEDS: SENNOSIDES-DOCUSATE SODIUM 1 EACH TAB PO SCH (08:41)
[2022-05-22] MEDS: ATORVASTATIN 10 MG TAB PO SCH (08:41)
[2022-05-22] MEDS: SPIRONOLACTONE 25 MG TAB PO SCH (08:41)
[2022-05-22] MEDS: DAPAGLIFLOZIN PROPANEDIOL 5 MG TABLET PO SCH (08:42)
[2022-05-22] MEDS: ASPIRIN 81 MG PO SCH (08:42)
[2022-05-22] MEDS: SACUBITRIL/VALSARTAN 24 MG-26 MG TABLET PO SCH ×2 (08:42→20:31)
[2022-05-22 09:27] LABS: African American GFR (CKD) 75.7 (60.0-200.0); Anion Gap 10.3 mmol/L (10.00-18.00); BUN/Creat Ratio 30.82 Ratio (12.00-20.00); Blood Urea Nitrogen 33.9 mg/dL (9.0-27.0); Calcium 8.9 mg/dL (8.7-10.3); Carbon Dioxide 25.7 mmol/L (20.0-27.5); Non-African American GFR(CKD) 65.3 (60.0-200.0); Potassium 3.8 mmol/L (3.5-5.5)
--- NOTE | 2022-05-22 10:32 | P.PN ---
Progress Note - Text Progress Note Date: 05/22/22 Postoperative day #4 Patient is seen and examined today at bedside. The patient has some pain around the surgical site as expected, but it is making progress adequately. His spasms are diminishing. He he denies any headaches or fevers. Pain is being controlled with medication. He is able to sit up with his head elevated in bed. He set up at the side of the bed yesterday and almost got to his feet but was unable to. He feels that he will be able to get on his feet today with therapy. He is not having any positional headaches. He is tolerating his regular diet. He is passing gas but not had a bowel movement yet. He is voiding freely. Physical Exam Afebrile with stable vital signs Abdomen is soft nontender. No significant distention. Chest has good excursion deep and space expiration The incision site is clean dry and intact. No erythema there is no purulence. Extremities have not had neurologic change from prior to surgery. He is able to flex his knees and hips and ankles and feet in bed Calves and thighs were soft nontender without evidence of DVT. Assessment/Plan Postoperative day #4 status post millimeters to decompression fusion L2 through L3 4 L4 5 for severe stenosis with lower extremity radiculopathy and weakness Incidental durotomy at the time of surgery which was closed primarily at the time of surgery and appears to be sealed and healed, without any evidence of further spinal leak Patient is progressing as expected from the surgery. I think that his spinal leak is healed and it is okay to continue to progress his mobility and ambulation. We will continue to increase the patient's mobilization with therapy. He has significant weakness prior to his surgery and it will be difficult for him to gain great mobility. I think that she has developed needs to make some progress with his decompression and he is eager for this. He is moving somewhat slowly as expected but we'll continue to make progress with physical therapy. There is likely that he will require custodial rehab post hospitalization. He may be ready for rehab transfer tomorrow on Monday before returning home We will continue pain control with oral or IV medications. We'll continue to follow patient closely.
[2022-05-22 12:04] LABS: Glucose,Whole Blood 127 mg/dL (70-110)
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
[2022-05-22] MEDS: TORSEMIDE 20 MG TAB PO SCH (16:31)
[2022-05-22 17:06] LABS: Glucose,Whole Blood 101 mg/dL (70-110)
[2022-05-22 20:03] LABS: Glucose,Whole Blood 187 mg/dL (70-110)
[2022-05-22] MEDS: HYDROmorphone 0.5 MG/0.5 ML SYRINGE IVP PRN (21:50)
[2022-05-23] MEDS: HYDROcodone/APAP 10-325MG 1 EACH TAB PO PRN ×3 (00:32→21:49)
[2022-05-23] MEDS: CYCLOBENZAPRINE 10 MG TAB PO PRN ×2 (03:43→14:02)
[2022-05-23] MEDS: HYDROmorphone 0.5 MG/0.5 ML SYRINGE IVP PRN ×2 (03:45→14:02)
[2022-05-23 05:56] LABS: Glucose,Whole Blood 204 mg/dL (70-110)
[2022-05-23] MEDS: INSULIN ASPART (NovoLOG) 100 UNIT/ML VIAL SQ SCH ×5 (06:32→21:49)
[2022-05-23] MEDS: ATORVASTATIN 10 MG TAB PO SCH (08:33)
[2022-05-23] MEDS: TORSEMIDE 20 MG TAB PO SCH (08:33)
[2022-05-23] MEDS: SACUBITRIL/VALSARTAN 24 MG-26 MG TABLET PO SCH ×2 (08:33→21:49)
[2022-05-23] MEDS: SENNOSIDES-DOCUSATE SODIUM 1 EACH TAB PO SCH (08:33)
[2022-05-23] MEDS: DAPAGLIFLOZIN PROPANEDIOL 5 MG TABLET PO SCH (08:33)
[2022-05-23] MEDS: ASPIRIN 81 MG PO SCH (08:33)
[2022-05-23] MEDS: SPIRONOLACTONE 25 MG TAB PO SCH (08:33)
--- NOTE | 2022-05-23 08:35 | P.PN ---
Progress Note - Text Progress Note Date: 05/23/22 Orthopedic Spine History of present illness: Patient is a pleasant 76-year-old male who is seen and examined at the bedside following posterior lateral decompression and fusion performed Monday. Patient states they are doing okay post operatively. He had an incidental durotomy during surgical intervention remain lying flat until Monday. Since that time, he feels he has been improving. He is able to sit up at the bedside and sitting upright in bed without difficulty. He is not experiencing any headaches. He feels his back pain and lower extremity pain is heavily controlled. He does continue to have significant difficulty with mobilization. He has not been able to ambulate Postoperatively. He has been working with therapy who has been able to get into the bedside but he has not been able to stand on his own. He is looking forward to discharge to a rehabilitation facility but does not feel ready as he still cannot stand. He is looking forward to working with physical therapy today. Currently does not complain of nausea, vomiting, fever, or chills. Patient states pain has been adequately controlled. Patient is eating and voiding freely without difficulty. He is passing lots of gas. Patient continues to be seeing exam by medicine for his other significant medical diagnoses. Physical Exam Lumbar Fusion: Status post surgical day number Patient is awake, alert, and oriented 3 Vital signs stable Good chest excursion with deep inspiration and expiration Abdomen soft nontender Dorsiflexion, plantarflexion, and extensor hallucis longus positive sustained bilaterally No signs or symptoms of DVT; no calf pain; pneumatic cuffs intact bilateral lower extremities Optifoam dressings are clean, dry, and intact over the lumbar spine and right iliac crest; no erythema, purulence, or signs of infection Neurovascularly intact bilaterally lower extremities Assessment: Status post L2-3, L3-4, and L4-5 minimally invasive posterior lateral decompression and fusion Incidental durotomy at L3-4 during surgical intervention Low back pain Degenerative scoliosis L2-3, L3-4, and L4-5 severe spinal stenosis Lower extremity radiculopathy Right lower extremity weakness Lumbar foraminal stenosis Lumbar degenerative disc disease Lumbar facet arthrosis Congestive heart failure Hyperlipidemia Essential hypertension Type 2 diabetes mellitus Proximal atrial fibrillation currently on anticoagulation Obesity Plan: 1. Ambulate as tolerated; work with Physical Therapy to increase mobilization 2. Continue pain control with IV and oral medications; will plan to begin weaning the patient off of IV narcotic medication in anticipation for discharge to a rehabilitation facility in the next 1-2 days 3. Dressings to remain intact with Optifoam; patient may shower with dressings intact 4. Medical management can continue to manage patient for patient's other medical diagnoses 5. We will continue to follow the patient closely; depending on the patient's progress, we may plan for discharge to a rehabilitation facility as early as tomorrow, 05/23/2022. Patient has had significant difficulty with mobilization. He has been unable to stand on his own. He did discuss he needs to be able to further increase his mobility and ambulation prior to discharge. He is planning to work with physical therapy today. He will need clearance by medicine prior to discharge. We will continue to follow the patient closely; patient continues to have difficulty with mobilization and ambulation postoperatively. He has been working with physical therapy and is progressing but slowly. I do not feel the patient is ready for discharge home. Patient will continue to remain in the hospital until his symptoms improve and his ambulation status improves. Patient will continue to be as needed as inpatient status during her admission. 6. Patient can follow-up with Sahil Walker PA-C or Dr. Rivera Knott at [facility] in 2-3 weeks following discharge
[2022-05-23 09:19] LABS: African American GFR (CKD) 61.9 (60.0-200.0); Anion Gap 14.5 mmol/L (10.00-18.00); BUN/Creat Ratio 24.62 Ratio (12.00-20.00); Calcium 8.7 mg/dL (8.7-10.3); Carbon Dioxide 24.5 mmol/L (20.0-27.5); Non-African American GFR(CKD) 53.4 (60.0-200.0); Potassium 4.1 mmol/L (3.5-5.5)
[2022-05-23 11:33] LABS: Glucose,Whole Blood 152 mg/dL (70-110)
[2022-05-23] MEDS ORDERED: DEXTROSE 50% SYRINGE 50 ML IVP PRN ×2 (14:12)
[2022-05-23] MEDS ORDERED: FUROSEMIDE 10 MG/ML 2 ML VIAL IV SCH (14:15)
[2022-05-23] MEDS ORDERED: FUROSEMIDE 10 MG/ML 2 ML VIAL IV ONE (14:16)
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
[2022-05-23 16:46] LABS: Glucose,Whole Blood 158 mg/dL (70-110)
[2022-05-23 20:47] LABS: Glucose,Whole Blood 171 mg/dL (70-110)
[2022-05-23] MEDS: diazePAM 5 MG TAB PO PRN (21:49)
[2022-05-24] MEDS: CYCLOBENZAPRINE 10 MG TAB PO PRN ×2 (02:03→13:44)
[2022-05-24] MEDS: HYDROcodone/APAP 10-325MG 1 EACH TAB PO PRN ×3 (02:03→17:52)
[2022-05-24 06:07] LABS: Glucose,Whole Blood 122 mg/dL (70-110)
[2022-05-24] MEDS: INSULIN ASPART (NovoLOG) 100 UNIT/ML VIAL SQ SCH ×6 (06:19→17:54)
[2022-05-24] MEDS: SACUBITRIL/VALSARTAN 24 MG-26 MG TABLET PO SCH (08:02)
[2022-05-24] MEDS: SPIRONOLACTONE 25 MG TAB PO SCH (08:02)
[2022-05-24] MEDS: DAPAGLIFLOZIN PROPANEDIOL 5 MG TABLET PO SCH (08:02)
[2022-05-24] MEDS: ATORVASTATIN 10 MG TAB PO SCH (08:02)
[2022-05-24] MEDS: SENNOSIDES-DOCUSATE SODIUM 1 EACH TAB PO SCH (08:02)
[2022-05-24] MEDS: ASPIRIN 81 MG PO SCH (08:02)
--- NOTE | 2022-05-24 08:38 | P.DS ---
Providers Date of admission: 05/20/22 06:52 Expected date of discharge: 05/24/22 Attending physician: Andi Knott Consults: 05/18/22 17:36 Consult Physician Routine Consulting Provider: Henry Holt Consult Reason/Comments: medical management Do you want consulting provider notified?: Yes 05/19/22 22:29 Consult Physician Routine Consulting Provider: Alesia Simmons Consult Reason/Comments: CHF Do you want consulting provider notified?: Yes 05/20/22 10:46 Consult Physician Routine Consulting Provider: Alesia Simmons Consult Reason/Comments: chf Do you want consulting provider notified?: Yes Primary care physician: Missy Park - Discharge Diagnosis(es) (1) Status post lumbar spinal fusion Current Visit: Yes Status: Acute (2) Lumbar stenosis with neurogenic claudication Current Visit: Yes Status: Acute (3) Weakness of right lower extremity Current Visit: Yes Status: Acute (4) Radiculopathy with lower extremity symptoms Current Visit: Yes Status: Acute (5) Lumbar facet arthropathy Current Visit: Yes Status: Acute (6) Lumbar degenerative disc disease Current Visit: Yes Status: Acute (7) Incidental durotomy Current Visit: Yes Status: Acute (8) Congestive heart failure Current Visit: Yes Status: Acute (9) Hyperlipidemia Current Visit: Yes Status: Acute (10) Essential hypertension Current Visit: Yes Status: Acute (11) Type 2 diabetes mellitus Current Visit: Yes Status: Acute (12) Obesity (BMI 30-39.9) Current Visit: Yes Status: Acute (13) Atrial fibrillation Current Visit: Yes Status: Acute (14) Current use of half-way anticoagulation Current Visit: Yes Status: Acute Hospital Course: This is a pleasant 76-year-old male who presented with lumbar spinal stenosis, neurogenic claudication, low back pain, degenerative scoliosis, lower extremity weakness, lower extremity radiculopathy, lumbar degenerative disc disease, and lumbar facet arthrosis who failed outpatient conservative therapy. He was admitted for an L2-3, L3-4, and L4-5 minimally invasive posterior lateral decompression and fusion performed on 05/18/2022. He had an incidental durotomy at L3-4 during surgical intervention and remain lying flat in bed until 05/21/2022. Since that time he has been able to sit upright and transferred to a bedside chair without any headaches. He denies spinal headaches. He denies any headaches at all. He has continued to progress slowly and has had significant difficulty with mobilization. He is requiring 2 person assist. He was able to transfer to a bedside chair when he is currently sitting comfortably. He continues to have weakness with his right lower extremity. He does feel his lower extremity leg pain is adequately controlled. His back pain is controlled at rest but is exacerbated with increased activities. He does feel if approved by insurance and cleared by medicine, he is ready for discharge to a rehabilitation facility today. We did discuss from orthopedic spine standpoint, he is clear for discharge today. Condition on day of discharge stable. Patient will be discharged to a rehabilitation facility. Patient was cleared preoperatively for surgery by Dr. Park. Patient currently denies any nausea, vomiting, fever, or chills. Patient is eating and voiding freely without difficulty. Patient may shower Optifoam dressing intact. Patient may remove Optifoam dressing in 3 days and shower without a dressing at that time. Patient should refrain from driving until at least after their first follow-up appointment in the office. Patient should avoid excessive bending, lifting, and twisting; no lifting gr eater than 10 pounds. Patient continues to pass gas and denies any abdominal pain. He has not had a bowel movement. We will continue with stool softeners as well as milk of magnesia to naphthalene operator helper in facility patient had a bowel movement. We did discuss patient must be approved by insurance and cleared by medicine prior to discharge today. We will plan for medicine to complete the med rec at the time of discharge. Patient will continue with anticoagulation per the recommendations of medicine. MAPS has been reviewed today, 05/24/2022, with an Overall Overdose Risk Score of 060. An "Opiod Start Talking" Form has been signed and placed in the patient's chart. A prescription has been written for hydrocodone 10 mg/325 mg, take 1 tab every 4 hours as needed for acute pain, dispensed #42. He is also given a prescription for cyclobenzaprine 10 mg 1 tab 3 times a day as needed for muscle spasm, dispensed #60 and Valium 5 mg 1 tab, 1 tab daily, as needed for anxiety, dispensed #7. Patient's other medical diagnoses include congestive heart failure, hyperlipidemia, essential hypertension, type 2 diabetes mellitus, proximal atrial fibrillation currently on anticoagulation, and obesity Physical Exam on day of discharge: Status post surgical day number 6 Patient is awake, alert, and oriented 3 Vital signs stable Good chest excursion with deep inspiration and expiration Abdomen soft nontender Dorsiflexion, plantarflexion, and extensor hallucis longus positive sustained bilaterally No signs or symptoms of DVT; no calf pain; pneumatic cuffs not currently intact bilateral lower extremities Optifoam dressings are clean, dry, and intact over the lumbar spine and right iliac crest; no erythema, purulence, or signs of infection Neurovascularly intact bilaterally lower extremities Difficulty performing hip flexion on the right No significant difficulty with hip flexion on the left The patient is seen and examined at bedside. He is seated up in a chair currently. Apparently he had some buckling of his right leg well in the bathroom and had to sit down on the floor with assistance from the nurse's aides next him. He was able to get up. He does not have any new issues but did have experience of continued right leg weakness. His incision site seems to be healing okay without any incident. His leg is not having significant strength improvements thus far but may have improvement over time. I think he is okay from a orthopedic spine standpoint for discharge nursing facility when he is clear with medicine. It is okay from a spine standpoint for him to be discharged to alf today if cleared with medicine. I'll plan to see him back in 2 weeks or sooner if he is having problems. We answered questions the best for ability and he is agreeable. Patient Condition at Discharge: Stable Plan - Discharge Summary Discharge Rx Participant: No New Discharge Prescriptions: New HYDROcodone/APAP 10-325MG [[place] 10] 1 each PO Q4H PRN #42 tab PRN Reason: Pain INSULIN ASPART (NovoLOG) [NovoLOG (formulary)] 0 unit SQ ACHS each Cyclobenzaprine [Flexeril] 10 mg PO TID PRN #60 tab PRN Reason: Muscle Spasm Sennosides-Docusate Sodium [Senokot-S] 1 tab PO BID PRN #60 tablet PRN Reason: Constipation diazePAM [Valium] 5 mg PO DAILY PRN #7 tab PRN Reason: Anxiety Magnesium Hydroxide [Milk of Magnesia] 2,400 mg PO DAILY #1 ml bisacodyL [Dulcolax] 10 mg RECTAL DAILY PRN suppositor PRN Reason: Constipation Continue Atorvastatin [Lipitor] 10 mg PO DAILY Spironolactone [Aldactone] 25 mg PO DAILY Torsemide [Demadex] 10 mg PO DAILY PRN PRN Reason: Swelling Sacubitril/Valsartan [Entresto 24 mg-26 mg Tablet] 1 each PO BID Empagliflozin [Jardiance] 10 mg PO DAILY Aspirin [Adult Low Dose Aspirin EC] 81 mg PO DAILY Discontinued HYDROcodone/APAP 7.5-325MG [[place] 7.5-325] 1 tab PO TID PRN PRN Reason: Pain Discharge Medication List Atorvastatin [Lipitor] 10 mg PO DAILY 05/15/18 [History] Spironolactone [Aldactone] 25 mg PO DAILY 07/29/21 [History] Aspirin [Adult Low Dose Aspirin EC] 81 mg PO DAILY 05/12/22 [History] Empagliflozin [Jardiance] 10 mg PO DAILY 05/12/22 [History] Sacubitril/Valsartan [Entresto 24 mg-26 mg Tablet] 1 each PO BID 05/12/22 [History] Torsemide [Demadex] 10 mg PO DAILY PRN 05/12/22 [History] Cyclobenzaprine [Flexeril] 10 mg PO TID PRN #60 tab 05/24/22 [Rx] HYDROcodone/APAP 10-325MG [[place] 10] 1 each PO Q4H PRN #42 tab 05/24/22 [Rx] INSULIN ASPART (NovoLOG) [NovoLOG (formulary)] 0 unit SQ ACHS each 05/24/22 [Rx] Magnesium Hydroxide [Milk of Magnesia] 2,400 mg PO DAILY #1 ml 05/24/22 [Rx] Sennosides-Docusate Sodium [Senokot-S] 1 tab PO BID PRN #60 tablet 05/24/22 [Rx] bisacodyL [Dulcolax] 10 mg RECTAL DAILY PRN suppositor 05/24/22 [Rx] diazePAM [Valium] 5 mg PO DAILY PRN #7 tab 05/24/22 [Rx] Follow up Appointment(s)/Referral(s): Sahil Walker, PAC [PHYSICIAN FOOD PREPARATION KITCHEN AIDE] - 06/06/22 9:30 am (Patient may follow-up with Sahil Walker PA-C or Dr. Rivera Knott at [facility] in 2-3 weeks following discharge. ) Missy Park, [Primary Care Provider] - 1 Week Activity/Diet/Wound Care/Special Instructions: 1. Patient may shower with Optifoam dressing intact. 2. Patient may remove Optifoam dressing in 3 days and shower without a dressing at that time. 3. Patient should refrain from driving until at least after their first follow- up appointment in the office. 4. Patient should avoid excessive bending, twisting, lifting; avoid overhead lifting; no lifting greater than 10 pounds 5. Take medications as prescribed 6. Patient is encouraged to utilize walker to aid in ambulation as needed 7. Patient should avoid anti-inflammatory medications over the next 6 weeks postoperatively 8. Do not soak in tub Discharge Disposition: TRANSFER TO SNF/ECF
[2022-05-24] MEDS ORDERED: TORSEMIDE 20 MG TAB PO PRN (09:00)
[2022-05-24 09:29] LABS: African American GFR (CKD) 75.7 (60.0-200.0); BUN/Creat Ratio 24.09 Ratio (12.00-20.00); Blood Urea Nitrogen 26.5 mg/dL (9.0-27.0); Calcium 8.6 mg/dL (8.7-10.3); Non-African American GFR(CKD) 65.3 (60.0-200.0); Potassium 3.6 mmol/L (3.5-5.5)
[2022-05-24 11:59] LABS: Glucose,Whole Blood 157 mg/dL (70-110)
[2022-05-24] MEDS: HYDROmorphone 0.5 MG/0.5 ML SYRINGE IVP PRN (13:44)
[2022-05-24 14:53] VITALS: BP 111/71; PULSE 60; RESP 16; TEMP 97.9
[2022-05-24 16:37] LABS: Glucose,Whole Blood 193 mg/dL (70-110)
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
[2022-05-25] MEDS ORDERED: PSYLLIUM HUSK 100% 6 GM PACKET PO SCH (09:00)
== END 2022-05-24 18:36 | DRG 456 ==
LOC: OR 06:53 → 4SSUR 15:05 → OR 05-20 06:52 → 4SSUR 05-20 06:52
PROVIDERS: ADMIT Orthopaedic Surgery Orthopaedic Surgery of the Spine; ATTEND Orthopaedic Surgery Orthopaedic Surgery of the Spine
PROC: 01NB0ZZ Release Lumbar Nerve, Open Approach (ICD-10-PCS; 2022-05-18)
PROC: 0SG10AJ Fusion of 2 or more Lumbar Vertebral Joints with Interbody Fusion Device, Posterior Approach, Anterior Column, Open Approach (ICD-10-PCS; 2022-05-18)
PROC: 00QT0ZZ Repair Spinal Meninges, Open Approach (ICD-10-PCS; 2022-05-18)
PROC: 0QB00ZX Excision of Lumbar Vertebra, Open Approach, Diagnostic (ICD-10-PCS; 2022-05-18)
PROC: 8E0WXBZ Computer Assisted Procedure of Trunk Region (ICD-10-PCS; 2022-05-18)
PROC: 30233H0 Transfusion of Autologous Whole Blood into Peripheral Vein, Percutaneous Approach (ICD-10-PCS; 2022-05-18)
PROC: 0SG107J Fusion of 2 or more Lumbar Vertebral Joints with Autologous Tissue Substitute, Posterior Approach, Anterior Column, Open Approach (ICD-10-PCS; principal; 2022-05-18 08:15)
DX: M48.062 Spinal stenosis, lumbar region with neurogenic claudication (principal); I50.23 Acute on chronic systolic (congestive) heart failure; M41.56 Other secondary scoliosis, lumbar region; G97.41 Accidental puncture or laceration of dura during a procedure; I44.2 Atrioventricular block, complete; I42.8 Other cardiomyopathies; E11.42 Type 2 diabetes mellitus with diabetic polyneuropathy; I11.0 Hypertensive heart disease with heart failure; E66.9 Obesity, unspecified; Y83.8 Other surgical procedures as the cause of abnormal reaction of the patient, or of later complication, without mention of misadventure at the time of the procedure; E78.5 Hyperlipidemia, unspecified; G47.33 Obstructive sleep apnea (adult) (pediatric); R09.02 Hypoxemia; I48.0 Paroxysmal atrial fibrillation; N40.0 Benign prostatic hyperplasia without lower urinary tract symptoms; Z96.653 Presence of artificial knee joint, bilateral; M47.26 Other spondylosis with radiculopathy, lumbar region; M51.16 Intervertebral disc disorders with radiculopathy, lumbar region; M19.91 Primary osteoarthritis, unspecified site; Z68.39 Body mass index [BMI] 39.0-39.9, adult; Z95.810 Presence of automatic (implantable) cardiac defibrillator; Z95.818 Presence of other cardiac implants and grafts; Z87.891 Personal history of nicotine dependence; Z79.899 Other long term (current) drug therapy; Z79.82 Long term (current) use of aspirin; Z79.84 Long term (current) use of oral hypoglycemic drugs; Z79.01 Long term (current) use of anticoagulants
CPT/HCPCS: 71045; 72100; 80048; 81001; 82805; 83880; 85025; 86850; 86891; 86900; 86901; 87635; 94760

== ENCOUNTER → 2024-10-04 | Outpatient (CLI) | payer MEDICARE, BC ==
--- NOTE | 2024-10-04 15:14 | CT ---
EXAMINATION TYPE: CT lumbar spine wo con CT DLP: 1998 mGycm, Automated exposure control for dose reduction was used. DATE OF EXAM: 10/04/2024 2:30 PM COMPARISON: CT lumbar spine 04/11/2022, 03/03/2022, 05/24/2021. CLINICAL INDICATION:Male, 79 years old with history of M43.16 SPONDYLOLISTHESIS, LUMBAR REGION; PHH, SPINAL PAIN IN L1, L2-5 FUSION YEARS AGO, pain TECHNIQUE: Multiple axial images were obtained from the midportion of T11 through the sacroiliac jimena nts. Soft tissue and bone windows in coronal and sagittal planes were obtained and reviewed. Contrast used: none. Oral contrast used: none. FINDINGS: Alignment: There are 5 lumbar type vertebral bodies. Persisting grade 1 retrolisthesis of L1 on L2. M inimal levocurvature of the lumbar spine with apex at L4. Bone: Postsurgical changes with bilateral pedicular screws and rods involving L2-L5. Hardware appear s intact. There is some surrounding lucency involving the bilateral L5 pedicular screws. Sacralizatio n of the left L5 segment. No evidence of fracture is identified. Similar suspect hemangioma superior L2 endplate again. Discs: T12-L1: No spinal canal or neural foraminal stenosis is identified. L1-L2: Vacuum disc disease. Grade 1 retrolisthesis. No significant spinal canal stenosis. No signific ant neural foraminal stenosis. L2-L3: Vacuum disc disease. Postsurgical change. No significant spinal canal or neural foraminal sten osis. L3-L4: Postsurgical changes. No significant spinal canal stenosis. Left-sided facet arthropathy. Righ t-sided laminectomy defect. No significant neural foraminal stenosis. L4-L5: Postsurgical changes without evidence for significant spinal canal stenosis. Right-sided alvina ectomy defect. Vacuum disc disease. Left-sided facet arthropathy. Moderate left neural foraminal sten osis. The right neural foramen is patent. L5-S1: No spinal canal or neural foraminal stenosis is identified. Other: Hepatic caudate lobe 2.5 cm simple appearing cyst. IMPRESSION: 1. No evidence for spinal fracture. 2. Postsurgical changes from L2 through L5. Hardware appears intact however there is lucency surround ing both L5 pedicular screws concerning for loosening. 3. Multilevel degenerative disc disease as described above. 4. Persistent grade 1 retrolisthesis of L1 on L2. 5. Sacralization of the left L5 segment redemonstrated. [facility], , 10/04/2024 3:11 PM
== END | disposition home or self-care (01) ==
LOC: RADCTMAIN 14:09
PROVIDERS: ATTEND Physical Medicine & Rehabilitation
DX: M48.062 Spinal stenosis, lumbar region with neurogenic claudication (principal); M51.360 Other intervertebral disc degeneration, lumbar region with discogenic back pain only; M43.16 Spondylolisthesis, lumbar region; M41.26 Other idiopathic scoliosis, lumbar region; M47.816 Spondylosis without myelopathy or radiculopathy, lumbar region; G62.9 Polyneuropathy, unspecified; E11.9 Type 2 diabetes mellitus without complications; Z98.1 Arthrodesis status
CPT/HCPCS: 72131